=== PATIENT | female | born 1950 | race Caucasian/White ===

== ENCOUNTER 2024-01-06 08:45 | Emergency (ER) | payer OTHER, SELFPAY ==
[2024-01-06] VITALS (7 sets, daily range): BP systolic 141–167; BP diastolic 71–96; BMI 29.6
--- NOTE | 2024-01-06 09:22 | ED.GENMED ---
History of Present Illness
General
Chief Complaint: Abdominal Symptoms
Source: patient
Exam Limitations: none
Time Seen by Provider: 01/06/24 09:12
Travel History
Have you had any contact with someone who has COVID-19?: No
Do you have any symptoms of coronavirus? Fever > 100 degrees, chills, cough, shortness of breath, sore throat, loss of taste or smell, muscle aches, or headache?: No
History of Present Illness
History of Present Illness:
See MDM
Past History
Past History
ED Past Medical History: Hypothyroidism and Other (SVT, MVP)
ED Past Surgical History: Tonsilectomy
Social History
Tobacco: Former smoker
Alcohol: None
Personal:
Living: with family
Phy Exam
Physical Exam
Physical Exam:
See MDM
Course
Orders/Labs/Results
Orders:
Orders
01/06/24 09:20
0.9% Sodium Chloride 1000 ml [Nss] 1,000 ml IV BOLUS
Ketorolac [Toradol] 30 mg IV NOW STA
Ondansetron Injectable [Zofran] 4 mg IV NOW STA
01/06/24 09:21
CT Abd/pel Without Iv Or Oral Urgent
Comment:
Reason For Exam: Left flank pain
01/06/24 09:40
COVID-19 Antigen Urgent
Source: Nasal Swab
Complete Blood Count/With Diff Urgent
Comprehensive Metabolic Panel Urgent
01/06/24 11:21
Urinalysis Reflex To Culture Urgent
Date Specimen was Collected: 01/06/24
Time Specimen was Collected: 11:08
01/06/24 11:24
Ondansetron Injectable [Zofran] 4 mg IV NOW STA
01/06/24 14:31
Electrocardiogram (*1) Urgent
Reason for Study: Fatigue / Weakness
EKG- Treatment ONCE
Abnormal Lab Results
01/06/24
09:40
WBC 12.7 H 10^3/uL
(4.8-10.8)
MPV 10.9 H fL
(7.4-10.4)
Absolute Neuts (auto) 11.1 H 10^3/uL
(1.4-6.5)
Neutrophils % 87.8 H %
(42.2-75.2)
Lymphocytes % 10.1 L %
(20.5-51.1)
Creatinine 0.5 L mg/dL
(0.6-1.0)
Glucose 145 H mg/dl
(70-99)
01/06/24 09:40
01/06/24 09:40
Vital Signs
Initial and Last Documented VS:
Initial Vital Signs
Temp Pulse Resp BP Pulse Ox
98.7 F 88 16 167/96 95
01/06/24 08:56 01/06/24 08:56 01/06/24 08:56 01/06/24 08:56 01/06/24 08:56
Last Documented Vital Signs
Temp Pulse Resp BP Pulse Ox
98.7 F 89 16 141/79 96
01/06/24 08:56 01/06/24 13:15 01/06/24 13:15 01/06/24 13:00 01/06/24 13:20
MDM/Problems Addressed
Differential Diagnosis Includes:
HPI and MDM Narrative:
73-year-old female presenting with several days of left flank pain. Patient now developing nausea and vomiting. She is unsure if this could be a kidney stone or COVID. There is COVID going around her work. She denies abdominal pain or urinary
symptoms
On exam, patient is sitting in bed comfortably. There is very mild left CVA tenderness. There is no rash. Given her symptoms, will obtain CT to rule out kidney stone. We did discuss the possibility of viral syndrome and will treat symptoms with
Toradol and Zofran. Given the mild dehydration, will give IV fluids.
Physical exam
General: Well appearing and non-toxic
HEENT: protecting airway. Mildly dry mucous membranes
Neck: appears supple
CV: No evidence of cyanosis
Resp: No accessory muscle use
Abd: Non-distended and nontender
Back: Mild left CVA tenderness. No rash
Extremities: No deformities
Neuro: alert
Psych: Normal affect
Skin: Intact
Problems Addressed including Acute and Chronic Conditions affecting care:
1. Left flank pain
Acuity: acute
Prognosis: stable
Details: Will obtain CT to rule out kidney stone. Will give IV Toradol
2. Nausea
Acuity: acute
Prognosis: stable
Details: Will give IV Zofran
3. Dehydration
Acuity: acute
Prognosis: stable
Details: Will start IV fluids
Updates
CT negative for acute pathology. Urinalysis negative
Differential Diagnosis (but not limited to): Viral syndrome, kidney stone, pyelonephritis
Testing considered: CXR
Drug therapy (if applicable): OTC meds, please see d/c instruction regarding Rx drugs
Amount and/or Complexity of Data Reviewed
Clinical info obtained from: Patient
External data reviewed: N/A
Labs I independently reviewed (but not limited to): Mild leukocytosis
Radiology: The CT scan was personally and independently reviewed. In addition, official CT report reviewed.
Pulse Ox: not hypoxic
EKG independently reviewed: Sinus rhythm, normal axis, no STEMI
Control Clerk Auditing: N/A
Critical Care: N/A
Risk of Complication:
Social Determinants of health: Good social support
Discussed with other providers: N/A
Escalation of Care includes Admit/Obs: After being observed in the Emergency Department, pt stable for discharge.
Occasional wrong word or 'sound a like' substitutions may have occurred due to the inherent limitations of voice recognition software. Read the chart carefully and recognize, using context, where substitutions have occurred.
*Critical Care Note
Total Time (30-74mins, 75-104mins- exclusive of procedures): Not Applicable
ED Attending Note
-
Portions of this chart may have been created with voice recognition software.� Occasional wrong word or��sound alike� substitutions may have occurred due to the inherent limitations of voice recognition software.
Discharge Plan
Departure
Patient Disposition: Home (Routine Discharge)
Date of Disposition: 01/06/24
Time of Disposition: 14:30
Patient with high blood pressure during this ER visit?: Yes
Discharge Problem:
Nausea & vomiting
Instructions: BLOOD PRESSURE
Prescriptions:
New
ondansetron 4 mg Tablet,Disintegrating
4 mg PO BIDPRN PRN (Reason: nausea/vomiting) Qty: 10 0RF
No Action
famotidine 20 MG tablet
20 mg PO BID Qty: 28 0RF
Rx Instructions:
Take 20 mg twice a day for 14 days
ascorbic acid (vitamin C) [Vitamin C] 500 MG tablet
1,000 mg PO BID Qty: 56 0RF
Rx Instructions:
Take 1,000 mg twice a day for 14 days
aspirin 81 MG tablet,chewable
81 mg PO DAILY Qty: 14 0RF
Rx Instructions:
Take 81 mg daily for 14 days
zinc sulfate 220 MG capsule
220 mg PO DAILY Qty: 14 0RF
Rx Instructions:
Take 220 mg daily for 14 days
cholecalciferol (vitamin D3) 1,000 UNITS tablet
2,000 units PO DAILY Qty: 28 0RF
Rx Instructions:
Take 2,000 units daily for 14 days
melatonin 5 MG tablet
5 mg PO HS Qty: 14 0RF
Rx Instructions:
Take 5 mg daily at bedtime for 14 days
Referrals:
Mary Benson NP [Family Provider] -
Activity Restrictions/Additional Instructions:
Please return for any worsening symptoms.
You may return at any time if you have further concerns.
Please follow up with your doctor at the first available appointment, preferably this week.
Thank you for choosing [facility].
Interventions
Interventions:
*Risk Screen - Suicide Last Done: 01/06/24 08:54
*General Assessment Last Done: 01/06/24 08:54
*Neglect/Abuse Screening Last Done: 01/06/24 08:54
*ED COVID-19 Vaccine History Last Done: 01/06/24 13:22
IB-Hqpzca-Ivxeqktdil Assessment Last Done: 01/06/24 11:00
Discharge Date and Time
Print Language: CHINESE
[2024-01-06] MEDS: TORADOL 30 MG IV (09:51)
[2024-01-06] MEDS: ZOFRAN 4 MG IV ×2 (09:51→11:26)
[2024-01-06] MEDS: NSS 1000 IV (09:53)
[2024-01-06 09:56] LABS: % Basophils 0.2 % (0-2); % Immature Granulocytes 0.2 % (0-0.5); % Lymphocytes 10.1 % (20.5-51.1); % Monocytes 1.7 % (1.7-9.3); % Neutrophils 87.8 % (42.2-75.2); Absolute Lymphocytes 1.3 10^3/uL (1.2-3.4); Absolute Monocytes 0.2 10^3/uL (0.1-0.6); Absolute Neutrophils 11.1 10^3/uL (1.4-6.5); Hematocrit 38.9 % (37.0-47.0); Hemoglobin 13.1 g/dL (12.0-16.0); Mean Corp Hgb Conc. 33.7 g/dL (33.0-37.0); Mean Corpuscular Hgb 29.8 pg (27.0-31.0); Mean Corpuscular Volume 88.4 fL (81.0-99.0); Mean Platelet Volume 10.9 fL (7.4-10.4); Nucleated Red Blood Cells % 0 %; Platelet Count 242 10^3/uL (130-400); Red Cell Dist. Width 12.6 % (11.5-14.5); White Blood Cell Count 12.7 10^3/uL (4.8-10.8)
[2024-01-06 10:05] LABS: ALT (SGPT) 23 U/L (0-35); AST (SGOT) 26 U/L (14-36); Albumin 4.5 g/dl (3.5-5.0); Alkaline Phosphatase 86 U/L (38-126); Blood Urea Nitrogen 13 mg/dl (7-17); COVID-19 Antigen Negative (Negative); Calcium 9.7 mg/dl (8.4-10.2); Carbon Dioxide 27 mmol/L (22-30); Chloride 101 mmol/L (98-107); Estimated Creatinine Clearance 76 ml/min; Glucose 145 mg/dl (70-99); Potassium 3.7 mmol/L (3.5-5.1); Sodium 136 mmol/L (135-145); Total Bilirubin 0.5 mg/dl (0.2-1.3); Total Protein 7.6 g/dl (6.3-8.2); eGFR > 60.00
[2024-01-06 11:37] LABS: Urine Albumin Negative (Neg - Trace); Urine Bilirubin Negative (Negative); Urine Character Slightly Cloudy (Clear); Urine Color Yellow; Urine Glucose Negative (Negative); Urine Ketone Negative (Negative); Urine Leukocyte Negative (Negative); Urine Nitrite Negative (Negative); Urine Occult Blood Negative (Negative); Urine Specific Gravity 1.015 (<1.030); Urine Urobilinogen Negative (Neg - 1+)
== END 2024-01-06 15:50 | disposition home or self-care (01) ==
LOC: EMR 08:45
PROVIDERS: EMERGENCY PHYSICIAN Student in an Organized Health Care Education/Training Program; FAMILY PHYSICIAN Nurse Practitioner Family
DX: R11.2 Nausea with vomiting, unspecified (principal); R10.9 Unspecified abdominal pain; Z11.52 Encounter for screening for COVID-19; R03.0 Elevated blood-pressure reading, without diagnosis of hypertension; E03.9 Hypothyroidism, unspecified; I34.1 Nonrheumatic mitral (valve) prolapse; I47.10 Supraventricular tachycardia, unspecified; Z87.891 Personal history of nicotine dependence; Z79.82 Long term (current) use of aspirin
CPT/HCPCS: 99285; 96374; 96375; 96376; 96361; 74176; 80053; 81003; 85025; 87811; 93005

== ENCOUNTER 2024-10-17 15:34 | Inpatient (IN) | payer OTHER, MEDICARE, SELFPAY ==
[2024-10-17] VITALS (9 sets, daily range): BP systolic 124–146; BP diastolic 77–88; BMI 27.3; BMI 27.9
[2024-10-17 11:36] LABS: % Basophils 0.3 % (0-2); % Eosinophils 0.1 % (0-6); % Immature Granulocytes 0.4 % (0-0.5); % Lymphocytes 15.8 % (20.5-51.1); % Monocytes 6.3 % (1.7-9.3); % Neutrophils 77.1 % (42.2-75.2); Absolute Basophils 0.1 10^3/uL (0-0.2); Absolute Immature Granulocytes 0.1 10^3/uL (0-0.05); Absolute Lymphocytes 2.5 10^3/uL (1.2-3.4); Absolute Neutrophils 12.1 10^3/uL (1.4-6.5); Hematocrit 43.4 % (37.0-47.0); Hemoglobin 14.7 g/dL (12.0-16.0); Mean Corp Hgb Conc. 33.9 g/dL (33.0-37.0); Mean Corpuscular Hgb 29.9 pg (27.0-31.0); Mean Corpuscular Volume 88.4 fL (81.0-99.0); Mean Platelet Volume 11.3 fL (7.4-10.4); Nucleated Red Blood Cells % 0.1 %; Platelet Count 292 10^3/uL (130-400); Red Blood Cell Count 4.91 10^6/uL (4.20-5.40); Red Cell Dist. Width 13.2 % (11.5-14.5); White Blood Cell Count 15.8 10^3/uL (4.8-10.8)
[2024-10-17 12:01] LABS: Blood Urea Nitrogen 31 mg/dl (7-17); Calcium 9.4 mg/dl (8.4-10.2); Carbon Dioxide 24 mmol/L (22-30); Chloride 98 mmol/L (98-107); Estimated Creatinine Clearance 56 ml/min; Glucose 122 mg/dl (70-99); Sodium 134 mmol/L (135-145); eGFR > 60.00
--- NOTE | 2024-10-17 12:02 | ED.GENMED ---
History of Present Illness
General
Chief Complaint: Dizziness
Source: patient
Exam Limitations: none
Time Seen by Provider: 10/17/24 11:49
History of Present Illness
History of Present Illness:
74yoF with a history of SVT and hypothyroidism presenting via EMS for evaluation of palpitations. Patient has been feeling sick and under the weather for about a week. She initially had vomiting for several days but this has resolved. She
continues to feel fatigued and has not been eating or drinking much. She also has been noting some hematuria and some mild generalized abdominal discomfort. This morning around 10 AM, patient was sitting down when she had an abrupt onset of
palpitations which felt like her heart was racing. She immediately called 911. Patient was in SVT on EMS arrival with HR in the 160s. She received 6 mg of adenosine with conversion to normal sinus rhythm. Her palpitations have since resolved.
She denies any chest pain, shortness of breath, dizziness, fevers, diarrhea. Patient does have a history of paroxysmal SVT and follows with [facility].
Past History
Past History
ED Past Medical History: Hypothyroidism and Other (SVT, MVP)
ED Past Surgical History: Tonsilectomy
Social History
Tobacco: Former smoker
Alcohol: None
Personal:
Living: with family
Phy Exam
General Physical Exam
General Presentation: no apparent distress
General Skin: warm and dry
General Habitus: elderly
General Mental: alert
ENT Exam
ENT Exam: normocephalic
Eye Exam
Eye Exam: other (Scleral icterus present)
Cardiovascular Exam
Cardiovascular Exam: regular rate/rhythm
Pulmonary Exam
Pulmonary Exam: lungs clear, no respiratory distress, no rales, no crackles, no rhonchi and no wheezing
Gastrointestinal Exam
Gastrointestinal Exam: soft, non distended and other (+Mild generalized abdominal tenderness. No rebound or guarding.)
Neurological Exam
Neurological Exam: alert
Katelyn Coma Scale
Eye Opening: Spontaneous
Verbal Response: Oriented
Motor Response: Obeys Commands
GCS Total Score: 15
Skin Exam
Skin Exam: warm/dry and jaundice
Psychiatric Exam
Psychiatric Exam: normal mood/affect
Course
Orders/Labs/Results
Orders:
Orders
10/17/24 Breakfast
Clear Liquid
At Your Request: Full Participation
Does patient need a safe tray?: No
10/17/24 11:16
Electrocardiogram (*1) Urgent
Reason for Study: Vertigo / Dizzy
EKG- Treatment ONCE
10/17/24 11:22
Basic Metabolic Panel Urgent
Complete Blood Count/With Diff Urgent
10/17/24 12:00
Add On- LAB Urgent
Tests Added?: magnesium, lipase, LFTs, TSH
CT Abd/pelvis W Iv Cont Urgent
Comment:
Reason For Exam: generalized abd pain, hematuria
Urinalysis Reflex To Culture Urgent
0.9% Sodium Chloride 500 ml [Nss] 500 ml IV BOLUS
CR Chest - 2 Views Urgent
Comment:
Reason For Exam: palpitations
10/17/24 12:01
Cardiac Monitoring- Treatment ONCE
10/17/24 12:22
COVID-19 Antigen Urgent
Source: Nasal Swab
TSH Urgent
Troponin I Urgent
Influenza A+B Rapid Molecular Urgent
IBIS Source: Nasal Swab
Specimen Description:
10/17/24 13:28
Lipase Urgent
Cdxyz-Ouzd-Qfpfenl Urgent
Magnesium Urgent
Potassium Urgent
10/17/24 15:19
Admit/Transfer Patient As Directed
Co-Sign Provider:
Level of Care: Inpatient admission
Assign to:: Telemetry
Physician / Group: marilee
Diagnosis: choledocholitiathiasis
Reason for Telemetry: Arrhythmia
Date to Stop Telemetry: 10/20/24
Time to Stop Telemetry: 11:00
Reason for Hospitalization: choledocholithiasis
Expected length of stay greater than two midnights?: Yes
ELOS- Estimated Length of Stay in days: 3
I certify the patient meets the requirements for IP care: Yes
10/17/24 15:20
Code Status As Directed
Resuscitation Status: Full Code
PRN Pain Medication Management As Directed
May give lesser potent ordered pain med per pt: Yes
preference::
Protocol:: Medication orders for pain may be administered in a
manner that supports deferring to patient preference
when the pt is:
- Requesting an ordered lesser potent pain medication.
Least to most potent pain medications are defined
as: acetaminophen < NSAID < tramadol < opioids
(morphine, oxycodone, hydromorphone).
- Requesting a lesser dose of the same medication IF
ORDERED.
- Requesting a less intrusive route of administration
if both routes are prescribed by the provider (PO <
IV).
10/17/24 15:23
GASTROINTESTINAL CONSULT Routine
Consulting Provider: Andrae Martinez
Was physician already notified: Yes
10/17/24 18:08
Enoxaparin Sodium [Lovenox] 40 mg SC QPM
10/17/24 18:08
Activity As Directed
Activity Level: As Tolerated
Vital Signs As Directed
Frequency: Per unit guidelines
DX Deep Vein Thrombosis Video Routine
10/17/24 18:30
Troponin I Q6H
10/18/24 00:30
Troponin I Q6H
10/18/24 06:00
Complete Blood Count/No Diff IN AM
Comprehensive Metabolic Panel IN AM
Levothyroxine [Synthroid] 125 mcg PO DAILY @ 0600
10/18/24 08:00
Metoprolol Xl [Toprol Xl] 50 mg PO DAILY
10/19/24 06:00
Complete Blood Count/No Diff IN AM
Comprehensive Metabolic Panel IN AM
10/20/24 06:00
Complete Blood Count/No Diff IN AM
Comprehensive Metabolic Panel IN AM
10/20/24 11:00
DC Protocol for Telemetry ONCE
10/21/24 06:00
Complete Blood Count/No Diff IN AM
Comprehensive Metabolic Panel IN AM
Abnormal Lab Results
10/17/24 10/17/24 10/17/24
11:22 12:22 13:28
WBC 15.8 H 10^3/uL
(4.8-10.8)
MPV 11.3 H fL
(7.4-10.4)
Abs Immat Gran (auto) 0.1 H 10^3/uL
(0-0.05)
Absolute Neuts (auto) 12.1 H 10^3/uL
(1.4-6.5)
Absolute Monos (auto) 1.0 H 10^3/uL
(0.1-0.6)
Neutrophils % 77.1 H %
(42.2-75.2)
Lymphocytes % 15.8 L %
(20.5-51.1)
Sodium 134 L mmol/L
(135-145)
BUN 31 H mg/dl
(7-17)
Glucose 122 H mg/dl
(70-99)
Total Bilirubin 6.4 H mg/dl
(0.2-1.3)
Direct Bilirubin 5.0 H mg/dl
(0.0-0.4)
AST 339 H U/L
(14-36)
ALT 924 H* U/L
(0-35)
Alkaline Phosphatase 382 H U/L
(38-126)
Troponin I 0.074 H* ng/ml
TSH 6.83 H uIU/ml
(0.47-4.68)
10/17/24 11:22
10/17/24 13:28
Vital Signs
Initial and Last Documented VS:
Initial Vital Signs
BP
124/88
10/17/24 11:15
Last Documented Vital Signs
Temp Pulse Resp BP Pulse Ox
98.5 F 80 18 142/79 92
10/17/24 11:16 10/17/24 17:45 10/17/24 17:45 10/17/24 17:37 10/17/24 17:45
MDM/Problems Addressed
Differential Diagnosis Includes:
74yoF here after an episode of palpitations. Received adenosine prehospital for SVT and arrives in NSR. Also c/o malaise, vomiting, hematuria, and abd discomfort x 1 week. She is visibly jaundiced on exam. VSS. She is non-toxic appearing. No signs
of peritonitis on abdominal exam. Differential diagnosis includes but is not limited to: arrhythmia, ACS, dehydration, electrolyte abnormality, malignancy, choledocholithiasis, cholecystitis, pancreatitis
Initial ED plan: Check cardiac labs, magnesium, TSH, lipase, COVID/flu swab, EKG, CXR, and CT abdomen. IV fluid bolus.
*EKG
Interpreted by ED Provider?: Yes
EKG Intrepretation Date: 10/17/24
Heart Rate: 90
Rate: normal
Rhythm: sinus
[place]: normal axis
Interval: normal interval
Ischemia: non-specific ST changes (ST depressions/T wave inversions seen in anterolateral leads which appear worse since prior EKG in December 2023)
*Critical Care Note
Total Time (30-74mins, 75-104mins- exclusive of procedures): Not Applicable
Update Note
Update Note:
Labs reveal a transaminitis with AST 339, ALT 924, total bilirubin 6.4. Lipase WNL. EKG shows NST with ST depressions in anterolateral leads. Troponin elevated at 0.074. CT abdomen shows 'Relative prominent size gallbladder without definitive stones
within. Intrahepatic and extrahepatic biliary tract dilatation.' No obvious CBD stone or mass. GI notified and patient admitted to the hospitalist service for further management.
ED Attending Note
-
Portions of this chart may have been created with voice recognition software.� Occasional wrong word or��sound alike� substitutions may have occurred due to the inherent limitations of voice recognition software.
Discharge Plan
Departure
Patient Disposition: Admit
Date of Disposition: 10/17/24
Time of Disposition: 14:56
Presentation/result/management discussed w/ accepting MD/DO: Hospitalist
Discharge Problem:
Obstructive jaundice, Elevated troponin, SVT (supraventricular tachycardia)
Interventions
Interventions:
*Risk Screen - Suicide Last Done: 10/17/24 11:19
*General Assessment Last Done: 10/17/24 11:19
*Neglect/Abuse Screening Last Done: 10/17/24 11:19
*ED- Fall Risk Assessment Last Done: 10/17/24 11:19
*ED COVID-19 Vaccine History Last Done: 10/17/24 11:19
*Nursing Disposition Last Done: 10/17/24 17:57
ED- Neurological Assessment Last Done: 10/17/24 11:19
ED- Cardiac Assessment Last Done: 10/17/24 11:20
ED Swallowing Screen Last Done: 10/17/24 11:20
Discharge Date and Time
Discharge Date/Time: 10/17/24 18:06
[2024-10-17] MEDS: NSS 500 IV (12:22)
[2024-10-17 12:49] LABS: COVID-19 Antigen Negative (Negative)
[2024-10-17 13:07] LABS: Troponin I 0.074 ng/ml
[2024-10-17 13:29] LABS: TSH 6.83 uIU/ml (0.47-4.68)
[2024-10-17 14:04] LABS: AST (SGOT) 339 U/L (14-36); Albumin 3.5 g/dl (3.5-5.0); Alkaline Phosphatase 382 U/L (38-126); Lipase 150 U/L (23-300); Magnesium 2.1 mg/dl (1.6-2.3); Potassium 3.6 mmol/L (3.5-5.1); Total Bilirubin 6.4 mg/dl (0.2-1.3); Total Protein 6.4 g/dl (6.3-8.2)
[2024-10-17 14:22] LABS: ALT (SGPT) 924 U/L (0-35)
--- NOTE | 2024-10-17 14:58 | HPS.HSE ---
Family Physician
-
Family Physician: Mary Benson
Chief Complaint
-
abdominal fulness
nausea and vomitting
History of Present Illness
74yoF with a history of SVT and hypothyroidism presenting via EMS for evaluation of palpitations.patient was vomiting on Monday to Monday. since then she very weak and fatigue. patient stated poor oral intake. denied diarrhea. patient stated
abdominal fullness. patient stated dark urine. she was feeling intermittent palpitation. denied chest pain. denied OWENS, dizzy or syncope.denied fever, chills. denied dysuria. This morning around 10 AM, patient was sitting down when she had an abrupt
onset of palpitations which felt like her heart was racing. She immediately called 911. Patient was in SVT on EMS arrival wtih HR in the 160s. She received 6 mg of adenosine as well as fluids with conversion to normal sinus rhythm. Her
palpitations have since resolved.
upon arrival noted to have elevated LFT. Relative prominent size gallbladder without definitive stones within. Intrahepatic and extrahepatic biliary tract dilatation. Cannot exclude small calculus within the distal common bile duct. Recommend
correlation with LFTs. Consider abdominal ultrasound or MRI/MRCP for more complete evaluation.No findings to suggest urinary tract calculus or obstructive uropathy bilaterally.Small hiatal hernia with air-fluid level.
admitting for likely choledocholithiasis, for further management.
Medical History
Past Medical History
Past Medical History: Reports Other
Additional Past Medical History:
Adama thyroiditis
Viral gastroenteritis
mitral valve prolapse
Mitral regurgitation
SVT
Past Surgical History: Reports Tonsilectomy
Social History
Tobacco: Former Smoker
Alcohol: None
Drug: None
Family History
Family History: Not pertinent
Allergies / Home Medications
Allergies reflects when Allergies were last updated in [employer].
Home Medications with original date entered in [employer]
Allergy/Medication List:
Allergies
Allergy/AdvReac Type Severity Reaction Status Date / Time
No Known Allergies Allergy Verified 01/06/24 08:53
Home Medications
cholecalciferol (vitamin D3) 25 mcg (1,000 unit) tablet 2,000 units PO DAILY #28 tabs 07/13/21
ascorbic acid (vitamin C) 500 mg tablet (Vitamin C) 1,000 mg PO DAILY 10/17/24
levothyroxine 125 mcg tablet (Synthroid) 125 mcg PO DAILY 10/17/24
metoprolol succinate 50 mg tablet,extended release 24 hr (Toprol XL) 50 mg PO DAILY 10/17/24
vitamin B complex 1 tab PO DAILY 10/17/24
Review of Systems
-
Constitutional: Reports No Symptoms
EENT: Reports No Symptoms
Respiratory: Reports No Symptoms
Cardiac: Reports No Symptoms
Abdomen/GI: Reports Nausea, Vomiting and Other (abdominal fullness)
: Reports No Symptoms
Musculoskeletal: Reports No Symptoms
Skin: Reports No Symptoms
Neurological: Reports Weakness
Endocrine: Reports No Symptoms
Hematologic/Lymphatic: Reports No Symptoms
Psych: Reports No Symptoms
Physical Exam
Vital Signs
Vital Signs
Temp Pulse Resp BP Pulse Ox
98.5 F 73 16 138/77 94
10/17/24 11:16 10/17/24 14:20 10/17/24 14:20 10/17/24 14:19 10/17/24 13:59
Physical Exam
General: Well Developed, Well Nourished and No Apparent Distress
HEENT: NormoCephalic, Moist mucous membranes and Atraumatic
Respiratory: Clear
Cardiac: S1/S2 and Regular Rhythm; No Murmur or Rub
GI: Soft, Non Tender, Non Distended and Normal Bowel Sounds; No Organomegaly
Rectal: Deferred by Provider
Musculoskeletal: No Clubbing, No Cyanosis and No Edema
Skin: Rash and Jaundice
Neuro: AO x 3 and Nonfocal/grossly intact
Psych: Calm
Laboratory Results
-
10/17/24 11:22
10/17/24 13:28
Laboratory Results
Total Bilirubin 6.4 mg/dl (0.2-1.3) H 10/17/24 13:28
AST 339 U/L (14-36) H 10/17/24 13:28
ALT 924 U/L (0-35) H* 10/17/24 13:28
Alkaline Phosphatase 382 U/L (38-126) H 10/17/24 13:28
Troponin I 0.074 ng/ml H* 10/17/24 12:22
Lipase 150 U/L (23-300) 10/17/24 13:28
Data Reviewed
-
CT Scan: Report Reviewed by me
Lab Data: Labs Reviewed by me
Impression/Plan
-
#vomiting/abdominal pain concern for Choledocholithiasis
-Tbili 6.4,AST 339,ALT 924,wbc 15.8
-CT abdomen pelvis with the impression of Relative prominent size gallbladder without definitive stones within. Intrahepatic and extrahepatic biliary tract dilatation. Cannot exclude small calculus within the distal common bile duct. Recommend
correlation with LFTs. Consider abdominal ultrasound or MRI/MRCP for more complete evaluation.No findings to suggest urinary tract calculus or obstructive uropathy bilaterally.Small hiatal hernia with air-fluid level.
-will obtain MRCP
-GI consulted
#elevated trop NSTEMI
-trop 0.074
-EKG with NSR with ST and T wave abnormality
-trend trop
-denied chest pain.
#hypothyroidism
-levothyroxine continued
#SVT
-metoprolol continued
#DVT prophylaxis
-Lovenox
#CODE status
-full code
--- NOTE | 2024-10-17 15:23 | W.PN.UPDATE ---
Addendum entered and electronically signed by Frdedie Dotson MD 10/17/24 15:36:
EKG shows nonspecific ST depressions. Trend troponins.
Original Note:
Update Note
Progress Note Update
This is an addendum to the H&P written by Leigh Farris on 10/17/2024.� Patient seen and examined independently with CAB SUPERVISOR.
74-year-old female past medical history of hypothyroidism, SVT, mitral valve prolapse, mild to moderate mitral regurgitation, presenting with vomiting, fatigue, abdominal distention, dark urine and jaundice going for 4 days.� Also with palpitations
with elevated heart rate today.
She was found to be in SVT by EMS with heart rate in the 160s.� She was given 6 mg adenosine and IV fluids with conversion to normal sinus rhythm.
EKG shows normal sinus rhythm with sinus arrhythmia.
Labs show leukocytosis.� Transaminitis with ALT up to 924.� Total bilirubin of 6.4.
Chest x-ray unremarkable.� CT abdomen pelvis shows intrahepatic and extrahepatic biliary ductal dilatation.� Cannot exclude small calculus within distal common bile duct.
Check MRCP.� GI consulted.� Clear liquid diet.
--- NOTE | 2024-10-17 16:13 | CON.GI ---
Consultation
-
Date/Time Consultation Requested: 10/17/24 2:56pm
Date/Time Consultation Performed: 10/17/24 4:14pm
Requesting Provider: Millie Santana
Performing Provider: Andrae Martinez
Reason for Consultation: Jaundice, abd pain
Medical History
Chief Complaint / HPI
Chief Complaint: Jaundice, abd pain
History of Present Illness:
Patient is a 74-year-old female who has had intermittent episodes of left upper quadrant pain with nausea and vomiting. She had an episode in August but subsequently tested positive for COVID which she attributed as a cause for her symptoms. She
had another episode about a week ago and then again Monday. Today she had nausea, vomiting, left abdominal pain as well as palpitations which led her to the ER. She had an elevated heart rate in the 160s. That was treated with adenosine by EMS.
She has also had dark urine and her family members noted jaundice. She is not sure, but may have lost some weight.
Past Medical History
Past Medical History: Arrhythmias (SVT) and Hypothyroidism ([place])
Past Surgical History: None
Social History
Tobacco: Non-Smoker
Alcohol: None
Family History
Family History: Reviewed & Not Pertinent
Allergies / Home Medications
Allergy/AdvReac Type Severity Reaction Status Date / Time
No Known Allergies Allergy Verified 01/06/24 08:53
�Medication �Instructions �Recorded
cholecalciferol (vitamin D3) 25 2,000 units PO DAILY #28 tabs 07/13/21
mcg (1,000 unit) tablet
ascorbic acid (vitamin C) 500 mg 1,000 mg PO DAILY 10/17/24
tablet (Vitamin C)
levothyroxine 125 mcg tablet 125 mcg PO DAILY 10/17/24
(Synthroid)
metoprolol succinate 50 mg 50 mg PO DAILY 10/17/24
tablet,extended release 24 hr
(Toprol XL)
vitamin B complex 1 tab PO DAILY 10/17/24
Review of Systems
-
All other systems: A 12 pt ROS was Negative except as stated above in HPI
Vital Signs
Temp Pulse Resp BP Pulse Ox
98.5 F 73 16 138/77 94
10/17/24 11:16 10/17/24 14:20 10/17/24 14:20 10/17/24 14:19 10/17/24 13:59
Physical Exam
Exam
General: No Apparent Distress
HEENT: Normocephalic and Atraumatic
Respiratory: Non Labored Respirations
GI: Soft, Non Distended and Tender (mild LUQ tender)
Skin: Warm and Dry
Results
WBC 15.8 10^3/uL (4.8-10.8) H 10/17/24 11:22
Hgb 14.7 g/dL (12.0-16.0) 10/17/24 11:22
Hct 43.4 % (37.0-47.0) 10/17/24 11:22
MCV 88.4 fL (81.0-99.0) 10/17/24 11:22
Plt Count 292 10^3/uL (130-400) 10/17/24 11:22
Absolute Neuts (auto) 12.1 10^3/uL (1.4-6.5) H 10/17/24 11:22
Sodium 134 mmol/L (135-145) L 10/17/24 11:22
Potassium 3.6 mmol/L (3.5-5.1) 10/17/24 13:28
Chloride 98 mmol/L (98-107) 10/17/24 11:22
Carbon Dioxide 24 mmol/L (22-30) 10/17/24 11:22
BUN 31 mg/dl (7-17) H 10/17/24 11:22
Creatinine 0.8 mg/dL (0.6-1.0) 10/17/24 11:22
Calcium 9.4 mg/dl (8.4-10.2) 10/17/24 11:22
Total Bilirubin 6.4 mg/dl (0.2-1.3) H 10/17/24 13:28
AST 339 U/L (14-36) H 10/17/24 13:28
ALT 924 U/L (0-35) H* 10/17/24 13:28
Alkaline Phosphatase 382 U/L (38-126) H 10/17/24 13:28
Lipase 150 U/L (23-300) 10/17/24 13:28
Diagnostic Image Results:
Prior GI Procedures:
EGD:
Colonoscopy:
Assessment / Plan
-
Summary: 74yo female presents with episodic LUQ pain, n/v, palpitations. Also has had dark urine and family noted jaundice. TB 6.4, AST 339, ALT 924, AP 382. CT shows prominent GB, IHDD/EHDD, cannot exclude small calculus distal CBD
Impression:
Abd pain/jaundice
Biliary duct dilation on CT and possible CBD stone
Recommendations:
Going for MRI/MRCP to evaluate for CBD stone
If positive, plan ERCP
Trend LFTs
OK for clears.
Trend troponin for ST depression on ECG
-
-
Thank you for consultation and allowing me to participate in the patient's care. Please call the inhalation therapy teacher GI physician during the after hours with any questions or concerns.
[2024-10-17] MEDS: LOVENOX SC (19:48)
[2024-10-17 23:18] LABS: Troponin I 0.094 ng/ml
--- NOTE | 2024-10-17 23:30 | PTCARENOTE ---
Pt's troponin level increased from 0.074 to 0.094, asymptomatic. OPTOMETRIC TECHNICIAN Edmond notified, no new orders.
[2024-10-18] VITALS (40 sets, daily range): BP systolic 71–140; BP diastolic 48–89; BMI 27.9
[2024-10-18] MEDS: SYNTHROID 125 MCG PO (05:41)
[2024-10-18 07:01] LABS: Hematocrit 41.1 % (37.0-47.0); Hemoglobin 14.3 g/dL (12.0-16.0); Mean Corp Hgb Conc. 34.8 g/dL (33.0-37.0); Mean Corpuscular Volume 86.2 fL (81.0-99.0); Mean Platelet Volume 11.3 fL (7.4-10.4); Platelet Count 250 10^3/uL (130-400); Red Blood Cell Count 4.77 10^6/uL (4.20-5.40); Red Cell Dist. Width 13.3 % (11.5-14.5); White Blood Cell Count 13.3 10^3/uL (4.8-10.8)
[2024-10-18 07:31] LABS: ALT (SGPT) 735 U/L (0-35); AST (SGOT) 210 U/L (14-36); Albumin 3.7 g/dl (3.5-5.0); Alkaline Phosphatase 342 U/L (38-126); Blood Urea Nitrogen 30 mg/dl (7-17); Calcium 9.1 mg/dl (8.4-10.2); Carbon Dioxide 21 mmol/L (22-30); Chloride 103 mmol/L (98-107); Estimated Creatinine Clearance 55 ml/min; Glucose 78 mg/dl (70-99); Potassium 3.4 mmol/L (3.5-5.1); Sodium 136 mmol/L (135-145); Total Bilirubin 2.9 mg/dl (0.2-1.3); Total Protein 6.4 g/dl (6.3-8.2); eGFR > 60.00
[2024-10-18 08:14] LABS: Urine Albumin 2+ (Neg - Trace); Urine Bilirubin 2+ (Negative); Urine Character Clear (Clear); Urine Color Amber; Urine Glucose Negative (Negative); Urine Ketone 3+ (Negative); Urine Leukocyte 3+ (Negative); Urine Nitrite Positive (Negative); Urine Occult Blood 1+ (Negative); Urine Specific Gravity 1.015 (<1.030); Urine Urobilinogen 2+ (Neg - 1+)
[2024-10-18 10:31] LABS: Urine Mucus Many
[2024-10-18 10:32] LABS: Urine Amorphous Seen; Urine Squamous Cell >30 /LPF (Few)
[2024-10-18 10:34] LABS: Urine White Cell 90-100 /HPF (0-5)
[2024-10-18 10:36] LABS: Urine Bacteria Many (Negative)
--- NOTE | 2024-10-18 11:25 | CM ---
Patient seen bedside, initial assessment completed. Admitted for abdominal fullness, nausea and vomiting. Patient is a 74yoF with a history of SVT and hypothyroidism presenting via EMS for evaluation of palpitations.
Patient reports that she lives w/ her two sons and grandson in a single story rancher style home- 1 step to enter the home. Patient is independent w/ADLs and ambulation, no DME identified or required. 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
Patient denies SNF/VN/PT hx. Patient denies being current w/ any OP or home services at this time.
Address, points of contact and insurance verified
PCP: Mary Benson
Pharmacy: [facility] (in [place])[facility]
Plan: Anticipate home; no needs
[2024-10-18 11:52] LABS: Glucose - Point of Care 144 mg/dl (70-99)
[2024-10-18 12:13] LABS: Hematocrit 47.6 % (37.0-47.0); Hemoglobin 15.8 g/dL (12.0-16.0); Mean Corp Hgb Conc. 33.2 g/dL (33.0-37.0); Mean Corpuscular Hgb 29.8 pg (27.0-31.0); Mean Corpuscular Volume 89.8 fL (81.0-99.0); Mean Platelet Volume 11.3 fL (7.4-10.4); Platelet Count 286 10^3/uL (130-400); Red Cell Dist. Width 13.5 % (11.5-14.5); White Blood Cell Count 17.3 10^3/uL (4.8-10.8)
[2024-10-18] MEDS: LOPRESSOR 5 MG IV (12:14)
--- NOTE | 2024-10-18 12:20 | W.PN.GI.CBS2 ---
Addendum entered and electronically signed by Janneth Daigle MD 10/18/24 13:52:
cardiology evaluating pt and deems her higher but acceptable risk for ercp
antibiotics will be started by Dr Olmstead
d/w both via TT
Original Note:
Today's Communication / Plan
-
ERCP if was NPO
follow lfts
Assessment / Plan
-
Summary: 74yo female presents with episodic LUQ pain, n/v, palpitations. Also has had dark urine and family noted jaundice. TB 6.4, AST 339, ALT 924, AP 382. CT shows prominent GB, IHDD/EHDD, cannot exclude small calculus distal CBD
Impression:
Abd pain/jaundice
Biliary duct dilation on CT and possible CBD stone
Recommendations:
MRI/MRCP positive, for ERCP today
Trend LFTs which are improving
NPO
Subjective
Subjective
Date of Service: October 18, 2024
Pt with improving abdominal pain but MRI shows CBD stone
Objective
Data Reviewed
Laboratory Data:
Laboratory Results
10/18/24 12:00
Laboratory Results
Magnesium 2.1 mg/dl (1.6-2.3) 10/17/24 13:28
Total Bilirubin 2.9 mg/dl (0.2-1.3) H D 10/18/24 06:44
AST 210 U/L (14-36) H 10/18/24 06:44
ALT 735 U/L (0-35) H* 10/18/24 06:44
Alkaline Phosphatase 342 U/L (38-126) H 10/18/24 06:44
Lipase 150 U/L (23-300) 10/17/24 13:28
Vital Signs and I&O:
Vital Signs
Temp Pulse Resp BP Pulse Ox
98.1 F 90 16 105/50 95
10/18/24 08:00 10/18/24 09:14 10/18/24 08:00 10/18/24 09:14 10/18/24 08:00
I&O
10/17/24 10/18/24 10/19/24
06:59 06:59 06:59
Intake Total 480 / 480
Balance 480 / 480
Physical Exam
Physical Exam
Cardiology: S1 and S2
GI: Soft and Tender (mild tenderness)
Neuro: Non Focal
[2024-10-18 12:27] LABS: ALT (SGPT) 745 U/L (0-35); AST (SGOT) 208 U/L (14-36); Albumin 4.2 g/dl (3.5-5.0); Alkaline Phosphatase 367 U/L (38-126); Blood Urea Nitrogen 35 mg/dl (7-17); Calcium 9.6 mg/dl (8.4-10.2); Carbon Dioxide 19 mmol/L (22-30); Chloride 101 mmol/L (98-107); Estimated Creatinine Clearance 49 ml/min; Glucose 141 mg/dl (70-99); Potassium 3.3 mmol/L (3.5-5.1); Sodium 135 mmol/L (135-145); Total Bilirubin 2.9 mg/dl (0.2-1.3); Total Protein 7.2 g/dl (6.3-8.2); eGFR > 60.00
--- NOTE | 2024-10-18 12:30 | RR ---
A Rapid Response was called on this patient, please see Rapid Response form.
11:45 Pt mention felt tired. Assisted pt back in bed, noted on heart monitor heart rate increase to 180's.EKG done. DR. Olmstead notified.
12:14 Cardiology notified ordered Lopressor 5 mg IV x 1. Noted heart rate decrease to 120's (heart rhythm Atrial fib), continue to monitor pt closely.
--- NOTE | 2024-10-18 12:31 | CON.CAR ---
Addendum entered and electronically signed by Cori Burleson DO 10/18/24 17:44:
I saw and examined the patient.
The Applications Developer's note was reviewed and I agree with the note.
Comment: Patient presented to ER for evaluation of palpitations. She has history of SVT followed by Dr. Smallwood on toprol 50mg daily. She reports over the last week she has been feeling ill with N/V and poor appetite. Also with some abd discomfort.
This morning started with palpitations and called 911. She was in SVT on EMS arrival and required adenosine 6mg. Denies CP, SOB, lightheadedness. Noted to have elevated LFTs and by imaging with evidence of choledocholithiasis. she is planned for
ERCP this afternoon. Cardiology consulted to see patient urgently as recurred with SVT with HRs in 160s and symptomatic. Rapid response called prior to cardiology notification.
General: Lying supine, comfortable complaining of some mild abdominal pain, room air
HEENT: mmm
Respiratory: Clear and Non Labored Respirations
Cardiac: S1/S2 and Irregular Rhythm no murmur
GI: Soft, mildly distended. Mild diffuse tenderness most right upper quadrant. Positive bowel sound
Musculoskeletal: No edema
Plan:
Tachycardia with history of SVT now in rapid atrial fibrillation
-IV Lopressor 5 mg provided at bedside with improved heart rates from 140s�160s to 110s
-Hemodynamically stable
-No clinical evidence of heart failure. No chest pain
-Will initiate IV Cardizem gtt at 5 While n.p.o.
-While in rapid atrial fibrillation EKG with septal/lateral ST depressions and abnormal cardiac troponin on admission�patient denies chest pain or known coronary artery disease.
-trops peaked at 0.94 with earlier episode of SVT. trop 0.075 from draw during RR
-Will check 2D echocardiogram
-planned for ERCP this afternoon. ok to proceed with planned procedure at elevated but not prohibitive CV risk
-add asa 81mg daily
-pending results of echo and ERCP, would consider for IV heparin post procedure
-[id number] score of 2-3 for age, female, suspected vascular disease
-for transfer to IVU post ERCP
-Eventual ischemic evaluation
-check CVE
-TSH 6.83. add on free T4
Original Note:
Consultation
Consultation Request
Date/Time Consultation Performed: 10/18/24
Requesting Provider: Dr. Olmstead
Performing Provider: Dora Collier PA-C for Dr. Burleson
Reason for Consultation: SVT
Medical History
-
Chief Complaint: palpitations
History of Present Illness:
Patient presented to ER for evaluation of palpitations. She has history of SVT followed by Dr. Smallwood on toprol 50mg daily. She reports over the last week she has been feeling ill with N/V and poor appetite. Also with some abd discomfort. This
morning started with palpitations and called 911. She was in SVT on EMS arrival and required adenosine 6mg. Denies CP, SOB, lightheadedness. Noted to have elevated LFTs and by imaging with evidence of choledocholithiasis. she is planned for ERCP
this afternoon. Cardiology consulted to see patient urgently as recurred with SVT with HRs in 160s and symptomatic. Rapid response called prior to cardiology notification.
PMH:
SVT
MVP
Hypothyroidism
Past Medical History
Past Medical History: Other (in HPI)
Social History
Tobacco: Former Smoker
Alcohol: None
Employment: Employed
Allergies / Home Medications
Allergy/AdvReac Type Severity Reaction Status Date / Time
No Known Allergies Allergy Verified 01/06/24 08:53
�Medication �Instructions �Recorded �Confirmed �Type
cholecalciferol (vitamin D3) 25 2,000 units PO DAILY #28 tabs 07/13/21 10/17/24 Rx
mcg (1,000 unit) tablet
ascorbic acid (vitamin C) 500 mg 1,000 mg PO DAILY 10/17/24 10/17/24 History
tablet (Vitamin C)
levothyroxine 125 mcg tablet 125 mcg PO DAILY 10/17/24 10/17/24 History
(Synthroid)
metoprolol succinate 50 mg 50 mg PO DAILY 10/17/24 10/17/24 History
tablet,extended release 24 hr
(Toprol XL)
vitamin B complex 1 tab PO DAILY 10/17/24 10/17/24 History
Review of Systems
-
History Source: Patient
All other systems: Negative unless noted
Physical Exam
Vital Signs
Temp Pulse Resp BP Pulse Ox
98.1 F 90 16 105/50 95
10/18/24 08:00 10/18/24 09:14 10/18/24 08:00 10/18/24 09:14 10/18/24 08:00
Lab Results
10/18/24 12:00
10/18/24 12:00
Troponin I 0.070 ng/ml H* 10/18/24 06:44
Physical Exam
General: No Apparent Distress and Comfortable
HEENT: Normocephalic, Anicteric and Moist Mucous Membranes
Respiratory: Clear and Non Labored Respirations
Cardiac: S1/S2 and Irregular Rhythm
GI: Soft, Non Tender, Non Distended and Normal Bowel Sounds
Musculoskeletal: No Clubbing, No Cyanosis and No Edema
Skin: Warm and Dry
Neuro: AO x 3
Impression / Plan
-
Primary Foreign Agent: Dr. Smallwood
Assessment:
Palpitations
SVT
Atrial fibrillation with RVR, new diagnosis
Elevated troponin
N/V, abd discomfort, poor appetite
Choledocholithiasis
Leukocytosis
Elevated LFTs
Hypokalemia
Abnormal UA
MVP
Hypothyroidism
ECHO 08/23/2021: EF 60 to 65%, mild to moderate MR, trace TR, RVSP 21 mmHg
Echo 10/18/24: pending
Plan:
-Asked to see patient in urgent consult as went into SVT. Rapid response had been called prior to cardiology consult.
-Blood pressure stable
-Ordered IV Lopressor 5 mg x 1
-P.o. Toprol 50 mg daily was not given this morning due to relative hypotension
-Post IV Lopressor, patient noted to be in atrial fibrillation. This is new diagnosis for patient. Will initiate IV Cardizem gtt at 5
-While in rapid atrial fibrillation, EKG with septal/lateral ST depressions
-trops peaked at 0.94 with earlier episode of SVT. trop 0.075 from draw during RR
-planned for ERCP this afternoon. ok to proceed with planned procedure at elevated but not prohibitive CV risk
-urgent echo ordered
-add asa 81mg daily
-pending results of echo and ERCP, would consider for IV heparin post procedure
-[id number] score of 2-3 for age, female, suspected vascular disease
-for transfer to IVU post ERCP
-suspect will need ischemic evaluation prior to DC vs in short order as OP once recovered pending clinical course and results of testing
-check CVE
-TSH 6.83. add on free T4
-replete K
-UA also noted to be abnormal. Urine culture pending. defer treatment to primary service
-d/w nursing, hospitalist, GI
-CCT 40 minutes
Data Reviewed
-
EKG: Tracing Personally Visualized and interpreted
CT Scan: Report Reviewed by me
MRI: Report Reviewed by me
Medical Tests (Nuc Med, Echo etc): Report Reviewed by me
Labs: Labs Reviewed by me
Old Records: Reviewed
[2024-10-18 12:36] LABS: INR 1.18; PT 15.3 Sec (11.4-14.6)
[2024-10-18 12:39] LABS: Troponin I 0.075 ng/ml
[2024-10-18] MEDS: CARDIZEM 125 IV (12:56)
--- NOTE | 2024-10-18 13:00 | PTCARENOTE ---
1300 Currently on heart monitor pt continue Atrial fib (Heart rate 110's to 120's). Cardiology aware. Noted order, started cardizem IV drip at 5mg per hour via IV pump, continue to monitor pt closely.
[2024-10-18] MEDS: KCL 40 MEQ PO (13:06)
[2024-10-18] MEDS: LOW STRENGTH ASPIRIN 81 MG PO (13:56)
[2024-10-18] MEDS: ZOSYN 50 IV ×2 (13:56→20:27)
--- NOTE | 2024-10-18 16:30 | W.PN.HOSP.TC ---
Today's Communication/Plan
-
Continue in IVU
General Surgical Consult
recheck labs in AM
Assessment / Plan
Assessment / Plan
#vomiting/abdominal pain concern for Choledocholithiasis
-Tbili 6.4-->2.9-->2.9,
AST 339-->210-->208,
ALT 924-->735-->745,
wbc 15.8-->13.3-->17.3
etiology of leukocytosis unclear. Possible biliary obstructive related, maybe UTI
will start empiric Zosyn until etio determined
-CT abdomen pelvis with the impression of Relative prominent size gallbladder without definitive stones within. Intrahepatic and extrahepatic biliary tract dilatation. Cannot exclude small calculus within the distal common bile duct. Recommend
correlation with LFTs. Consider abdominal ultrasound or MRI/MRCP for more complete evaluation.No findings to suggest urinary tract calculus or obstructive uropathy bilaterally. Small hiatal hernia with air-fluid level.
- MRCP:Biliary ductal distention. Choledocholithiasis. Gallbladder distention with small calculus in the gallbladder neck. Mild gallbladder wall thickening and trace pericholecystic fluid, suggesting low-grade cholecystitis.
-GI consulted
ERCP balloon extraction of choledocholithiasis by Dr. Jonah Richards
Pt transferred to IVU post procedure
#elevated trop NSTEMI
-trop 0.074-->0.094-->0.090-->0.070-->0.075
-EKG with NSR with ST and T wave abnormality
-denied chest pain.
#hypothyroidism
-levothyroxine continued
Hypokalemia
K 3.6-->3.4-->3.3
received 40 Meq KCl orally
#SVT
-metoprolol continued. Was contacted this morning due to hypotension and Metoprolol was placed on hold pending further input. Pt did receive adenosine 6mg in ER with conversion to NSR
Pt transferred to IVU. Cardio consult placed, input appreciated. Currently converted to NSR on Cardizem drip
#DVT prophylaxis
-Lovenox
Family concerned about possible mild dementia and thus would prefer contact with family to make decisions
reviewed with CRISTINA Mendez (niece and track service person)
#CODE status
-full code
time including multiple visits 55 minutes
Anticipated Discharge: > 48 hours
Subjective/Interval History
-
Date of Service: October 18, 2024
Pt seen by me, noted a.fib, rate control and shortly thereafter went into SVT (does have a hx of this)
Objective Data
-
Labs:
Laboratory Results
10/18/24 10/18/24
06:44 12:00
WBC 13.3 H 17.3 H
Hgb 14.3 15.8
Hct 41.1 47.6 H
Plt Count 250 286
PT 15.3 H
INR 1.18
APTT 32.0
Sodium 136 135
Potassium 3.4 L 3.3 L
Chloride 103 101
Carbon Dioxide 21 L 19 L
BUN 30 H 35 H
Creatinine 0.8 0.9
Glucose 78 141 H
Calcium 9.1 9.6
Total Bilirubin 2.9 H D 2.9 H
AST 210 H 208 H
ALT 735 H* 745 H*
Alkaline Phosphatase 342 H 367 H
Vital Signs:
Vital Signs
Temp Pulse Resp BP Pulse Ox
97 F 73 17 102/71 95
10/18/24 15:50 10/18/24 16:15 10/18/24 16:15 10/18/24 16:15 10/18/24 16:15
I&O
03/02/0510/18/24 10/19/24
06:59 06:59 06:59
Intake Total 480 / 480
Balance 480 / 480
Review of Systems
-
History Source: Patient, Physician and Coordinated Provider
Constitutional: Denies Fever
EENT: Reports No Symptoms Reported
Respiratory: Reports No Symptoms
Cardiac: Reports No Symptoms; Denies Chest Pain
Abdomen/GI: Reports No Symptoms
Musculoskeletal: Reports No Symptoms
Neuro: Reports No Symptoms
Physical Exam
-
General: Well Developed, Well Nourished and No Apparent Distress
HEENT: Normocephalic, Atraumatic and Moist Mucous Membranes
Respiratory: Clear to Auscultation; Negative Wheezes, Rales or Rhonchi
Cardiac: S1/S2 and Irregular Rhythm
GI: Nondistended and Tender (mild LUQ tenderness)
Musculoskeletal: No Clubbing, No Cyanosis and No Edema
Neuro: Awake, Alert and Oriented
[2024-10-18] MEDS: LOVENOX 40 MG SC (18:01)
[2024-10-18 18:30] LABS: Troponin I 0.069 ng/ml
--- NOTE | 2024-10-18 18:41 | PTCARENOTE ---
Received patient from PACU at 1630 after ERCP under GA. Patient oriented to room and plan of care, belongings sent from the 4th floor to her room. Patient is in SR on the monitor, IV cardizem infusing at 5mg/hr. Patient denies any pain or
discomfort, tolerating clears, call campbell in reach. Patient's niece updated via telephone by Dr. Olmstead. Echo done at the bedside.
--- NOTE | 2024-10-18 20:40 | PTCARENOTE ---
assumed care of patient at the change of shift. AAOx3. denies any pain at this time. states just 'just feeling tired.' comfort measures provided. SR on tele 70s. bp 100/63. Cardizem gtt maintained at 5 ml/hr, per order. tolerating clear liquid diet.
passing gas. jaundice skin noted. reviewed plan of care with patient and verbalized understanding. call campbell within reach.
[2024-10-18 21:56] LABS: Free T4 1.89 ng/dl (0.78-2.19)
--- NOTE | 2024-10-18 22:13 | PTCARENOTE ---
at approx 2100, patients blood pressure 84/56. HR SR 60s-70s. recheck bp - 71/48. cardizem gtt placed on hold. patient denies any lightheadedness/dizziness. patient states 'feeling tired.' sp02 88% on RA- placed on 2L NC- 94%. updated [facility]
house DRILLER MACHINE and at bedside. discussed plan of care. cardizem gtt continue to be held. currently HR SR 70s. bp 95/82. 93% on 2L.
patient unable to void. bladder scan 660. patient denies any discomfort. order placed for straight cath. straight cathed patient for 700 ml of tea colored urine; no blood. fluids encouraged.
[2024-10-18] MEDS: NSS 500 IV (23:25)
[2024-10-18 23:37] LABS: Hematocrit 39.1 % (37.0-47.0); Hemoglobin 13.7 g/dL (12.0-16.0); Mean Corpuscular Hgb 30.2 pg (27.0-31.0); Mean Corpuscular Volume 86.1 fL (81.0-99.0); Mean Platelet Volume 10.8 fL (7.4-10.4); Platelet Count 236 10^3/uL (130-400); Red Blood Cell Count 4.54 10^6/uL (4.20-5.40); Red Cell Dist. Width 13.3 % (11.5-14.5); White Blood Cell Count 11.3 10^3/uL (4.8-10.8)
--- NOTE | 2024-10-18 23:37 | PTCARENOTE ---
blood pressure 76/58. HR SR 60s. patient sleeping and arouses to voice. denies any symptoms. [facility] [employer]. IVF bolus ordered, see mar. stat labs sent.
[2024-10-19] VITALS (28 sets, daily range): BP systolic 74–115; BP diastolic 51–69
[2024-10-19 00:04] LABS: Blood Urea Nitrogen 35 mg/dl (7-17); Calcium 8.9 mg/dl (8.4-10.2); Carbon Dioxide 21 mmol/L (22-30); Chloride 102 mmol/L (98-107); Estimated Creatinine Clearance 49 ml/min; Glucose 162 mg/dl (70-99); Sodium 132 mmol/L (135-145); eGFR > 60.00
[2024-10-19] MEDS: ProAmatine 5 MG PO (01:10)
[2024-10-19] MEDS: NSS 500 IV (01:53)
--- NOTE | 2024-10-19 02:22 | PTCARENOTE ---
patient continues to have low blood pressures. 83/59. 77/51. Molly Todd OPTICAL LAB TECHNICIAN notified and at bedside. midodrine ordered and given. another IVF bolus 500 ml ordered and started, see mar. patient sleepy but arousable to voice. answers questions
appropriately. forgetful. when asked, patient states having some lower abdominal pain- 'fullness.' + BS. bladder scan- 22cc. recheck bp- 108/63. HR SB/SR 50s-60s. asymptomatic. no new orders at this time.
[2024-10-19] MEDS: ZOSYN 50 IV ×4 (03:08→20:52)
--- NOTE | 2024-10-19 04:06 | W.PN.UPDATE ---
Update Note
Progress Note Update
RN reported Low BP 70's/60's to 87/58 HR 60's-70, RA 88% 97.6 IV Cardizem placed on hold. reports tiredness otherwise asymptomatic. Will order NSS 500 CC bolus x1, labs ordered wnl,
BP 83/51 MAP 62 18 Afebrile. Patient seen and evaluated, sleeping, easily arousable, pleasant, some memory impairment, knows her name, and where she is, unsure of the current year. Denies lightheadedness, dizziness, chest pain or shortness of
breath. Reports 'fullness' in the stomach, states passing gas, + BS 4 quad, soft non tender, no guarding. lungs clear, denies any chest pain, shortness of breath.
Will order Midodrine 5mg PO x 1, NSS 500CC x1 bolus.
when awake BP 104/60 HR 50s. When asleep-88/55 MAP 66
AM labs noted
Will continue NSS infusion.
[2024-10-19 04:48] LABS: Hematocrit 38.7 % (37.0-47.0); Mean Corp Hgb Conc. 33.6 g/dL (33.0-37.0); Mean Corpuscular Hgb 29.3 pg (27.0-31.0); Mean Corpuscular Volume 87.2 fL (81.0-99.0); Mean Platelet Volume 11.4 fL (7.4-10.4); Platelet Count 227 10^3/uL (130-400); Red Blood Cell Count 4.44 10^6/uL (4.20-5.40); Red Cell Dist. Width 13.3 % (11.5-14.5); White Blood Cell Count 10.5 10^3/uL (4.8-10.8)
[2024-10-19 05:07] LABS: Lactic Acid 0.9 mmol/L (0.7-2.0)
[2024-10-19 05:17] LABS: ALT (SGPT) 474 U/L (0-35); AST (SGOT) 99 U/L (14-36); Albumin 2.9 g/dl (3.5-5.0); Alkaline Phosphatase 250 U/L (38-126); Blood Urea Nitrogen 34 mg/dl (7-17); Calcium 8.7 mg/dl (8.4-10.2); Carbon Dioxide 22 mmol/L (22-30); Chloride 105 mmol/L (98-107); Estimated Creatinine Clearance 49 ml/min; Glucose 133 mg/dl (70-99); HDL Cholesterol 27 mg/dl; LDL Cholesterol, Calculated 125 mg/dl; Lipase 206 U/L (23-300); Potassium 3.9 mmol/L (3.5-5.1); Sodium 134 mmol/L (135-145); Total Bilirubin 2.1 mg/dl (0.2-1.3); Total Cholesterol 175 mg/dl (50-199); Total Protein 5.5 g/dl (6.3-8.2); Triglyceride 115 mg/dl (10-149); Very Low Density Lipoprotein 23 mg/dl (0-30); eGFR > 60.00
[2024-10-19] MEDS: SYNTHROID 125 MCG PO (07:42)
[2024-10-19] MEDS: NSS 1000 IV (07:43)
--- NOTE | 2024-10-19 08:01 | W.PN.HOSP.TC ---
Today's Communication/Plan
-
General Surg consult
Reviewed with CRISTINA Mims
start low dose Toprol XL
continue IVF, but add K
Assessment / Plan
Assessment / Plan
#vomiting/abdominal pain concern for Choledocholithiasis
-Tbili 6.4-->2.9-->2.9-->2.1,
AST 339-->210-->208-->99,
ALT 924-->735-->745-->474,
Lipase 150-->206
wbc 15.8-->13.3-->17.3-->11.3-->10.5
etiology of leukocytosis unclear. Possible biliary obstructive related, maybe UTI
will start empiric Zosyn until etio determined
Ur cx pending
-CT abdomen pelvis with the impression of Relative prominent size gallbladder without definitive stones within. Intrahepatic and extrahepatic biliary tract dilatation. Cannot exclude small calculus within the distal common bile duct. Recommend
correlation with LFTs. Consider abdominal ultrasound or MRI/MRCP for more complete evaluation.No findings to suggest urinary tract calculus or obstructive uropathy bilaterally. Small hiatal hernia with air-fluid level.
- MRCP:Biliary ductal distention. Choledocholithiasis. Gallbladder distention with small calculus in the gallbladder neck. Mild gallbladder wall thickening and trace pericholecystic fluid, suggesting low-grade cholecystitis.
-GI consulted
-Gen Surg consulted, discussed with Dr. Alonso last evening
ERCP balloon extraction of choledocholithiasis by Dr. Jonah Richards 10/18
On clear liquids, will advance as per direction of GI/Surg
Pt transferred to IVU post procedure
#elevated trop NSTEMI
-trop 0.074-->0.094-->0.090-->0.070-->0.075
-EKG with NSR with ST and T wave abnormality
-denied chest pain.
#hypothyroidism
-levothyroxine continued
Hypokalemia
K 3.6-->3.4-->3.3-->3.9
received 40 Meq KCl orally 10/18
#SVT
-metoprolol continued. Was contacted this morning due to hypotension and Metoprolol was placed on hold pending further input. Pt did receive adenosine 6mg in ER with conversion to NSR evening of admission.
Pt transferred to IVU. Cardio consult placed, input appreciated. converted to NSR on Cardizem drip. BP remains low 104/60. Cardizem drip placed on hold, currently not on Tx. Call placed and discussed with Dr. Burleson, requests starting
Toprol XL 25 mg daily now. Will continue IVF
#DVT prophylaxis
-Lovenox
Family concerned about possible mild dementia and thus would prefer contact with family to make decisions
reviewed with CRISTINA Mendez (niece and manager personal) 10/19
#CODE status
-full code
complex situation
Anticipated Discharge: > 48 hours
Subjective/Interval History
-
Date of Service: October 19, 2024
Feels better today, no abd pain
Objective Data
-
Labs:
Laboratory Results
10/18/24 10/19/24
23:28 04:12
WBC 11.3 H 10.5
Hgb 13.7 13.0
Hct 39.1 38.7
Plt Count 236 227
Sodium 132 L 134 L
Potassium 4.0 3.9
Chloride 102 105
Carbon Dioxide 21 L 22
BUN 35 H 34 H
Creatinine 0.9 0.9
Glucose 162 H 133 H
Calcium 8.9 8.7
Total Bilirubin 2.1 H
AST 99 H
ALT 474 H
Alkaline Phosphatase 250 H
Vital Signs:
Vital Signs
Temp Pulse Resp BP Pulse Ox
97.8 F 58 16 104/60 93
10/19/24 04:27 10/19/24 04:15 10/19/24 04:27 10/19/24 04:10 10/19/24 04:27
I&O
10/18/24 10/19/24 10/20/24
06:59 06:59 07:59
Intake Total 480 / 480 1325 / 1325
Output Total 700 / 700
Balance 480 / 480 625 / 625
Review of Systems
-
History Source: Patient, Physician and Coordinated Provider
Constitutional: Denies Fever
EENT: Reports No Symptoms Reported
Respiratory: Reports No Symptoms
Cardiac: Reports No Symptoms; Denies Chest Pain
Abdomen/GI: Reports No Symptoms; Denies Abdominal Pain, Nausea or Vomiting
Musculoskeletal: Reports No Symptoms
Neuro: Reports No Symptoms
Physical Exam
-
General: Well Developed, Well Nourished and No Apparent Distress
HEENT: Normocephalic, Atraumatic and Moist Mucous Membranes
Respiratory: Clear to Auscultation; Negative Wheezes, Rales or Rhonchi
Cardiac: S1/S2 and Irregular Rhythm
GI: Nondistended and Tender (mild LUQ tenderness resolved)
Musculoskeletal: No Clubbing, No Cyanosis and No Edema
Neuro: Awake, Alert and Oriented
[2024-10-19] MEDS: D5/0.45%NSS with KCL 20 MEQ 1000 IV ×2 (10:17→22:37)
[2024-10-19] MEDS: LOPRESSOR 12.5 MG PO ×2 (10:43→20:52)
--- NOTE | 2024-10-19 12:33 | W.PN.CARDCBS ---
Today's Communication / Plan
-
Continue to monitor hemodynamics with borderline low blood pressures receiving IV fluids
Low-dose Lopressor with hold parameters
Monitor telemetry
Eventual anticoagulation; will await general surgery plan
Eventual further workup for right atrial mass
Have reached out to patient's outpatient parish worker Dr. Smallwood
Impression / Plan
-
Primary Addresser: Dr. Smallwood
Assessment:
Palpitations
SVT
Atrial fibrillation with RVR, new diagnosis
Elevated troponin
N/V, abd discomfort, poor appetite
Choledocholithiasis
Leukocytosis
Elevated LFTs
Hypokalemia
Abnormal UA
MVP
Hypothyroidism
ECHO 08/23/2021: EF 60 to 65%, mild to moderate MR, trace TR, RVSP 21 mmHg
Echo 10/18/24: Normal biventricular size and systolic function with EF estimated 55-60%. Mild LVH. No regional wall motion abnormality. Right atrial size is normal there is a echodensity measuring 1.3 x 0.9 cm in the right atrium adjacent to the
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 Tricuspid leaflets open freely without obstruction. Trace tricuspid regurgitation. Mitral valve with trace mitral regurgitation. Aortic valve trileaflet, sclerotic without stenosis or regurgitation. Estimated
pulmonary artery pressures 50-20 mm IVC without mass size with normal respiratory variation
Plan:
Atrial tachycardias with history of SVT with episodes of SVT and rapid atrial fibrillation currently in this rhythm
-IV Cardizem discontinued this morning with hypotension
-Start Lopressor 12.5 mg twice daily with hold parameters and transition back to XL formulation once blood pressures have stabilized
-TSH elevated at 6.83 Free T4 normal
-CHADS-VASC score 2 (age and gender)
-For now continue aspirin 81 mg daily awaiting surgical plan. If no plan for surgery will start Eliquis 5 mg twice daily
Right atrial mass
-2D echocardiogram done yesterday personally reviewed. 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 Review of an echocardiogram from 2021 has a suggestion for similar less
prominent finding not reported.
-Will obtain a CTA of the chest
-Will contact patient's outpatient parish worker to review any prior records/diagnosis
-Imaging and case was discussed with CT surgery. Eventual referral to CT surgery likely as an outpatient to discuss resection. Patient will also eventually need a OCTAVIA and left heart catheterization
Abnormal EKG/elevated troponin in the setting of tachyarrhythmia
-No chest pain or pressure
-Echocardiogram with no regional wall motion abnormality and normal EF
-Eventual plan for left heart catheterization likely as an outpatient once she has recovered from choledocholithiasis
-Continue aspirin 81 mg daily.
-Lipid profile suboptimal however elevated LFTs in the setting lysis will hold off starting statin at this
-Continue low-dose beta-shadia
Choledocholithiasis with elevated LFTs
-GI and general surgery consulted
-Status post ERCP stone extraction
-Clinically improving now on clear liquids. LFTs improving.
-Await plan by general surgery
Hypokalemia now improved with oral supplementation. Keep K greater than 4, mag greater than 2
Discussed with hospitalist; will discuss with general surgery
Progress Note - Addresser
Subjective
Date of Service: October 19, 2024
Patient seen and examined feeling well this morning. She denies chest pain or pressure, shortness of breath or dizziness. She denies abdominal pain nausea or vomiting. She denies fevers.
Objective
Labs:
10/19/24 04:12
10/19/24 04:12
Labs
Hgb 13.0 g/dL (12.0-16.0) 10/19/24 04:12
Hct 38.7 % (37.0-47.0) 10/19/24 04:12
Plt Count 227 10^3/uL (130-400) 10/19/24 04:12
PT 15.3 Sec (11.4-14.6) H 03/07/25 12:00
INR 1.18 10/18/24 12:00
APTT 32.0 Sec (23.4-35.0) 10/18/24 12:00
Sodium 134 mmol/L (135-145) L 10/19/24 04:12
Potassium 3.9 mmol/L (3.5-5.1) 10/19/24 04:12
BUN 34 mg/dl (7-17) H 10/19/24 04:12
Creatinine 0.9 mg/dL (0.6-1.0) 10/19/24 04:12
Glucose 133 mg/dl (70-99) H 10/19/24 04:12
Troponins
10/17/24 10/17/24 10/17/24
12:22 15:45 18:30
Troponin I 0.074 H* Cancelled Cancelled
10/17/24 10/18/24 10/18/24
22:45 04:40 06:44
Troponin I 0.094 H* 0.090 H* 0.070 H*
10/18/24 10/18/24 10/18/24
12:00 12:30 17:59
Troponin I 0.075 H* Cancelled 0.069 H*
Vital Signs and I&O:
Vital Signs
Temp Pulse Resp BP Pulse Ox
97.8 F 62 16 102/62 96
10/19/24 11:00 10/19/24 08:30 10/19/24 11:00 10/19/24 08:00 10/19/24 11:00
Vital Signs
Temp Pulse Resp BP Pulse Ox
97.8 F 62 16 102/62 96
10/19/24 11:00 10/19/24 08:30 10/19/24 11:00 10/19/24 08:00 10/19/24 11:00
Intake & Output
10/17/24 10/18/24 10/19/24 10/20/24
06:59 06:59 06:59 07:59
Intake Total 480 / 480 1325 / 1325
Output Total 700 / 700
Balance 480 / 480 625 / 625
Physical Exam
Physical Exam
General: No acute distress, AAOX3
Neck: Negative JVD
Heart: Regular, Negative S3 positive S1/S2, No murmur
Lungs: CTA b/l, negative wheezes/rales/rhonchi
Abd: Positive BS, NT/ND, neg rebound/rigidity/guarding
Ext: Negative cyanosis/clubbing/edema
Neuro: nonfocal
--- NOTE | 2024-10-19 14:08 | CON.GS ---
Addendum entered and electronically signed by Leeroy Alonso MD 10/19/24 14:37:
Patient seen and examined with surgical [facility] OFFICER. Agree with documented consultation.
General surgery consultation requested after undergoing ERCP sphincterotomy stone extraction for choledocholithiasis with GI yesterday.
Patient states that she presented with problems managing her heart rate. She is a bit vague with her additional history taking but seems to state that she has had years of postprandial epigastric pain from eating too fast. This has been unchanged
for many years. She specifically denies right upper quadrant pain. She has been having some left-sided discomfort and occasional nausea vomiting over the past few months. Last bowel movement 3 days ago. Generally feels well after ERCP other than
some mild discomfort in the left abdomen.
PMH: A-fib/SVT, hypothyroidism
Past surgical history -tonsils, no past abdominal surgical history
AFVSS
NAD AAOx3 sitting comfortably in chair at bedside
ABD: Softly protuberant, mild tenderness palpation left upper quadrant/left side. No rebound rigidity or guarding. No right upper quadrant epigastric tenderness.
Imaging studies reviewed CT abdomen/pelvis 10/17/2024. Biliary ductal dilation. Gallbladder distended but no clear wall thickening or surrounding inflammatory changes.
MRCP/MR abdomen 10/17/2024: Reproducible low segment filling density for distal common bile duct suggestive of choledocholithiasis. The gallbladder wall thickening, moderately distended gallbladder
ERCP images reviewed there appears to be opacification of the cystic duct and gallbladder
Assessment/plan: 74-year-old female with recent choledocholithiasis postprocedure day #1 status post ERCP.
Discussed with patient indications for prophylactic cholecystectomy in setting of gallstone mediated complications -choledocholithiasis. Also reviewed with cardiology. No indication/need for urgent cholecystectomy as there are no radiographic or
clinical signs of cholecystitis. Cystic duct opacifies on ERCP.
Cholecystectomy on hold until further workup of right atrial mass.
Okay for therapeutic anticoagulation from a general surgical standpoint as anticipated plan is deferral until cardiology evaluations and workup complete.
Will follow peripherally.
Patient can follow-up as an outpatient with our general surgery office
Original Note:
Consultation
-
Date/Time Consultation Requested: 10/18/2024 1712
Date/Time Consultation Performed: 10/19/24 1300
Requesting Provider: Aysha
Performing Provider: Krysta Alonso
Medical History
-
Chief Complaint: palpitations
History of Present Illness:
Ms Mccloud is a 74 yo female with a h/o SVT who presented through the ED with palpations found to be in rapid Afib with left atrial mass seen on imaging. She additionally was noted to elevated LFT's prompting GI work up. She did note intermittent
LUQ discomfort with n/v over the past few months. Family and patient had noted jaundice as well. MRI/MRCP were positive for choledocholithiasis and she was taken for ERCP on 10/18/24 for removal of stones. She is currently having mild discomfort to
the LUQ with no pain or tenderness to the RUQ. She denies nausea or vomiting. She does note it has been 2-3 days since her last BM.
Past Medical History
Past Medical History: Arrhythmias (afib, svt) and Hypothyroidism
Past Surgical History: Tonsilectomy
Social History
Tobacco: Former Smoker
Alcohol: None
Family History
Family History: Reviewed & Not Pertinent
Allergies / Home Medications
Allergy/AdvReac Type Severity Reaction Status Date / Time
No Known Allergies Allergy Verified 01/06/24 08:53
�Medication �Instructions �Recorded �Confirmed �Type
cholecalciferol (vitamin D3) 25 2,000 units PO DAILY #28 tabs 07/13/21 10/17/24 Rx
mcg (1,000 unit) tablet
ascorbic acid (vitamin C) 500 mg 1,000 mg PO DAILY Supplement 10/17/24 10/17/24 History
tablet (Vitamin C)
levothyroxine 125 mcg tablet 125 mcg PO DAILY Thyroid 10/17/24 10/17/24 History
(Synthroid)
metoprolol succinate 50 mg 50 mg PO DAILY Blood Pressure 10/17/24 10/17/24 History
tablet,extended release 24 hr
(Toprol XL)
vitamin B complex 1 tab PO DAILY Supplement 10/17/24 10/17/24 History
Review of Systems
-
History Source: Patient
All other systems: Negative unless noted
A 10 point review of systems was completed, and was negative except as per HPI.
Physical Exam
Vital Signs
Temp Pulse Resp BP Pulse Ox
97.8 F 62 16 102/62 96
10/19/24 11:00 10/19/24 08:30 10/19/24 11:00 10/19/24 08:00 10/19/24 11:00
10/18/24 10/19/24 10/20/24
06:59 06:59 07:59
Actual Weight 66.848 kg
Body Mass Index (BMI) 27.9
Lab Results
10/19/24 04:12
10/19/24 04:12
WBC 10.5 10^3/uL (4.8-10.8) 10/19/24 04:12
Hgb 13.0 g/dL (12.0-16.0) 10/19/24 04:12
Hct 38.7 % (37.0-47.0) 10/19/24 04:12
Plt Count 227 10^3/uL (130-400) 10/19/24 04:12
Abs Immat Gran (auto) 0.1 10^3/uL (0-0.05) H 10/17/24 11:22
Neutrophils % 77.1 % (42.2-75.2) H 10/17/24 11:22
Physical Exam
General: Well Developed and Well Nourished
HEENT: Moist Mucous Membranes
Respiratory: Non Labored Respirations
GI: Soft, Non Distended and Tender (mild to LUQ)
Skin: Warm and Dry; Negative Jaundice
Neuro: Awake, Alert and AO x 3
Psych: Calm
Data Reviewed
-
CT Scan: Image Personally Visualized and interpreted, Report Reviewed by me, Discussed with Physician, Discussed with Nurse and Discussed with Patient
MRI: Image Personally Visualized and interpreted, Report Reviewed by me, Discussed with Physician, Discussed with Nurse and Discussed with Patient
Labs: Labs Reviewed by me, Discussed with Physician, Discussed with Nurse and Discussed with Patient
Old Records: Reviewed
Assessment / Plan
-
74 yo female presenting with palpitations and new onset afib found to be jaundiced with choledocholithiasis on MRCP. No cholecystitis on CT or MRI imaging, cholelithiasis demonstrated. Undergoing cardiac work up and management for new afib with
right atrial mass noted on the cardiac step down unit. LFT's trending down s/p ERCP on 10/18/24. No RUQ pain, some residual LUQ tenderness. Afebrile. Leukocytosis resolved.
Would recommend eventual laparoscopic cholecystectomy to prevent recurrence; however, as she does not currently have cholecystitis and given her concurrent cardiac diagnosis, this can be preformed on an outpatient basis once cleared by cardiology
for surgery. Discussed risk of recurrence with patient, who is agreeable with this plan.
--Ok for low fat diet
--Ok to begin anticoagulation as per cardiology
--Outpatient surgical follow up
--- NOTE | 2024-10-19 14:09 | W.PN.GI.CBS2 ---
Today's Communication / Plan
-
advance diet if ok with surgery
Assessment / Plan
-
Summary: 74yo female presents with episodic LUQ pain, n/v, palpitations. Also has had dark urine and family noted jaundice. TB 6.4, AST 339, ALT 924, AP 382. CT shows prominent GB, IHDD/EHDD, cannot exclude small calculus distal CBD
Impression:
abnl lfts improving s/p ERCP with stone extraction
Recommendations:
agree with surgical input
advance diet to low fat if ok with surgery
follow lfts
Subjective
Subjective
Date of Service: October 19, 2024
Pt w/o abdominal pain s/p ERCP with removal of stone
Objective
Data Reviewed
Laboratory Data:
Laboratory Results
10/19/24 04:12
10/19/24 04:12
Laboratory Results
PT 15.3 Sec (11.4-14.6) H 10/18/24 12:00
INR 1.18 10/18/24 12:00
APTT 32.0 Sec (23.4-35.0) 10/18/24 12:00
Magnesium 2.1 mg/dl (1.6-2.3) 10/17/24 13:28
Total Bilirubin 2.1 mg/dl (0.2-1.3) H 10/19/24 04:12
AST 99 U/L (14-36) H 10/19/24 04:12
ALT 474 U/L (0-35) H 10/19/24 04:12
Alkaline Phosphatase 250 U/L (38-126) H 10/19/24 04:12
Lipase 206 U/L (23-300) 10/19/24 04:12
Vital Signs and I&O:
Vital Signs
Temp Pulse Resp BP Pulse Ox
97.8 F 62 16 102/62 96
10/19/24 11:00 10/19/24 08:30 10/19/24 11:00 10/19/24 08:00 10/19/24 11:00
I&O
10/18/24 10/19/24 10/20/24
06:59 06:59 07:59
Intake Total 480 / 480 1325 / 1325
Output Total 700 / 700
Balance 480 / 480 625 / 625
Physical Exam
Physical Exam
GI: Soft, Non Distended and Non Tender
[2024-10-19] MEDS: MIRALAX 17 GRAMS PO (14:41)
[2024-10-19] MEDS: LOVENOX 40 MG SC (17:59)
--- NOTE | 2024-10-19 18:00 | PTCARENOTE ---
Pt received this am with no c/o of pain, palpitations or nausea. Pt tolerating clear liqs and advanced to low fat diet for dinner with no issues. Voiding clear yellow urine in the BR. Tolerated oob in the chair, gait steady.
[2024-10-20 04:24] VITALS: BP 101/67
[2024-10-20] MEDS: ZOSYN 50 IV ×4 (04:37→19:58)
[2024-10-20 05:09] LABS: Hematocrit 35.1 % (37.0-47.0); Mean Corp Hgb Conc. 34.2 g/dL (33.0-37.0); Mean Corpuscular Hgb 30.4 pg (27.0-31.0); Mean Corpuscular Volume 88.9 fL (81.0-99.0); Mean Platelet Volume 11.8 fL (7.4-10.4); Platelet Count 229 10^3/uL (130-400); Red Blood Cell Count 3.95 10^6/uL (4.20-5.40); Red Cell Dist. Width 13.2 % (11.5-14.5); White Blood Cell Count 14.7 10^3/uL (4.8-10.8)
[2024-10-20 05:35] LABS: ALT (SGPT) 359 U/L (0-35); AST (SGOT) 69 U/L (14-36); Alkaline Phosphatase 202 U/L (38-126); Blood Urea Nitrogen 21 mg/dl (7-17); Calcium 8.6 mg/dl (8.4-10.2); Carbon Dioxide 24 mmol/L (22-30); Chloride 106 mmol/L (98-107); Estimated Creatinine Clearance 49 ml/min; Glucose 133 mg/dl (70-99); Lipase 257 U/L (23-300); Magnesium 2.2 mg/dl (1.6-2.3); Potassium 3.7 mmol/L (3.5-5.1); Sodium 136 mmol/L (135-145); Total Bilirubin 1.7 mg/dl (0.2-1.3); Total Protein 5.5 g/dl (6.3-8.2); eGFR > 60.00
--- NOTE | 2024-10-20 06:05 | W.PN.GI.CBS2 ---
Today's Communication / Plan
-
will sign off
Assessment / Plan
-
Summary: 74yo female presents with episodic LUQ pain, n/v, palpitations. Also has had dark urine and family noted jaundice. TB 6.4, AST 339, ALT 924, AP 382. CT shows prominent GB, IHDD/EHDD, cannot exclude small calculus distal CBD
Impression:
abnl lfts improving s/p ERCP with stone extraction
Recommendations:
doing well post ercp day 2
will sign off call with questions
Subjective
Subjective
Date of Service: October 20, 2024
Pt eating, no abdominal pain
Objective
Data Reviewed
Laboratory Data:
Laboratory Results
10/20/24 04:35
10/20/24 04:35
Laboratory Results
PT 15.3 Sec (11.4-14.6) H 10/18/24 12:00
INR 1.18 10/18/24 12:00
APTT 32.0 Sec (23.4-35.0) 10/18/24 12:00
Magnesium 2.2 mg/dl (1.6-2.3) 10/20/24 04:35
Total Bilirubin 1.7 mg/dl (0.2-1.3) H 10/20/24 04:35
AST 69 U/L (14-36) H 10/20/24 04:35
ALT 359 U/L (0-35) H 10/20/24 04:35
Alkaline Phosphatase 202 U/L (38-126) H 10/20/24 04:35
Lipase 257 U/L (23-300) 10/20/24 04:35
Vital Signs and I&O:
Vital Signs
Temp Pulse Resp BP Pulse Ox
98.6 F 62 16 101/67 94
10/20/24 04:25 10/20/24 05:45 10/20/24 04:25 10/20/24 04:24 10/20/24 04:25
I&O
10/18/24 10/19/24 10/20/24
06:59 06:59 07:59
Intake Total 480 / 480 1325 / 1325 1000 / 1000
Output Total 700 / 700 550 / 550
Balance 480 / 480 625 / 625 450 / 450
Physical Exam
Physical Exam
GI: Soft, Non Distended and Non Tender
[2024-10-20 07:24] VITALS: BP 102/54
[2024-10-20] MEDS: SYNTHROID 125 MCG PO (07:28)
[2024-10-20] MEDS: LOPRESSOR 12.5 MG PO ×2 (08:37→19:59)
[2024-10-20] MEDS: MIRALAX 17 GRAMS PO (08:37)
--- NOTE | 2024-10-20 11:10 | W.PN.CARDCBS ---
Today's Communication / Plan
-
Start IV heparin
Supportive care as she is recovering from choledocholithiasis status post ERCP with stone extraction
Impression / Plan
-
Primary Liquor Blender: Dr. Smallwood
Assessment:
Palpitations
SVT
Atrial fibrillation with RVR, new diagnosis
Elevated troponin
N/V, abd discomfort, poor appetite
Choledocholithiasis
Leukocytosis
Elevated LFTs
Hypokalemia
Abnormal UA
MVP
Hypothyroidism
ECHO 08/23/2021: EF 60 to 65%, mild to moderate MR, trace TR, RVSP 21 mmHg
Echo 10/18/24: Normal biventricular size and systolic function with EF estimated 55-60%. Mild LVH. No regional wall motion abnormality. Right atrial size is normal there is a echodensity measuring 1.3 x 0.9 cm in the right atrium adjacent to the
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 Tricuspid leaflets open freely without obstruction. Trace tricuspid regurgitation. Mitral valve with trace mitral regurgitation. Aortic valve trileaflet, sclerotic without stenosis or regurgitation. Estimated
pulmonary artery pressures 50-20 mm IVC without mass size with normal respiratory variation
Plan:
Atrial tachycardias with history of SVT with episodes of SVT and rapid atrial fibrillation currently in sinus rhythm
- Lopressor 12.5 mg twice daily with hold parameters and transition back to XL formulation once blood pressures have stabilized
- TSH elevated at 6.83 Free T4 normal
- CHADS-VASC score 2 (age and gender)
- Per GI no plan for further procedures and okay to start anticoagulation. Per general surgery no immediate inpatient plan for cholecystectomy although she will need cholecystectomy in near future
- Will start IV heparin without bolus today to allow further discussion regarding right atrial mass management.
- Eventual transition to Eliquis. Case management consulted for cost
Right atrial mass
-2D echocardiogram done yesterday personally reviewed. 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 Review of an echocardiogram from 2021 has a suggestion for similar less
prominent finding not reported.
-CTA of the chest reviewed�will review with radiology for further comment on right atrial mass
-Spoke with Dr. Smallwood yesterday who will review his outpatient records with us next week
-Imaging and case was discussed with CT surgery. Eventual referral to CT surgery likely as an outpatient to discuss resection. Patient will also eventually need a OCTAVIA and left heart catheterization; need to discuss timing
Abnormal EKG/elevated troponin in the setting of tachyarrhythmia
-No chest pain or pressure
-Echocardiogram with no regional wall motion abnormality and normal EF
-Eventual plan for left heart catheterization likely as an outpatient once she has recovered from choledocholithiasis
-Continue aspirin 81 mg daily.
-Lipid profile suboptimal however elevated LFTs in the setting of choledocholithiasis/elevated LFTs will hold off starting statin at this
-Continue low-dose beta-shadia
Choledocholithiasis with elevated LFTs
-GI and general surgery consulted
-Status post ERCP stone extraction 10/18
-Clinically improving and tolerating diet
- LFTs improving.
-Will eventually need cholecystectomy in the near future
Discussed with hospitalist, GI and GS
Progress Note - Liquor Blender
Subjective
Date of Service: October 20, 2024
Seen and examined sitting out of bed to chair following breakfast. No abdominal pain. No nausea/vomiting. No fevers. No chest pain or pressure. Patient is aware of echo findings.
Objective
Labs:
10/20/24 04:35
10/20/24 04:35
Labs
Hgb 12.0 g/dL (12.0-16.0) 10/20/24 04:35
Hct 35.1 % (37.0-47.0) L 10/20/24 04:35
Plt Count 229 10^3/uL (130-400) 10/20/24 04:35
PT 15.3 Sec (11.4-14.6) H 10/18/24 12:00
INR 1.18 10/18/24 12:00
APTT 32.0 Sec (23.4-35.0) 10/18/24 12:00
Sodium 136 mmol/L (135-145) 10/20/24 04:35
Potassium 3.7 mmol/L (3.5-5.1) 10/20/24 04:35
BUN 21 mg/dl (7-17) H 10/20/24 04:35
Creatinine 0.9 mg/dL (0.6-1.0) 10/20/24 04:35
Glucose 133 mg/dl (70-99) H 10/20/24 04:35
Troponins
10/17/24 10/17/24 10/17/24
12:22 15:45 18:30
Troponin I 0.074 H* Cancelled Cancelled
10/17/24 10/18/24 10/18/24
22:45 04:40 06:44
Troponin I 0.094 H* 0.090 H* 0.070 H*
10/18/24 10/18/24 10/18/24
12:00 12:30 17:59
Troponin I 0.075 H* Cancelled 0.069 H*
Vital Signs and I&O:
Vital Signs
Temp Pulse Resp BP Pulse Ox
98.4 F 62 16 102/54 96
10/20/24 07:28 10/20/24 08:00 10/20/24 07:28 10/20/24 07:24 10/20/24 07:28
Vital Signs
Temp Pulse Resp BP Pulse Ox
98.4 F 62 16 102/54 96
10/20/24 07:28 10/20/24 08:00 10/20/24 07:28 10/20/24 07:24 10/20/24 07:28
Intake & Output
10/18/24 10/19/24 10/20/24 10/21/24
05:59 05:59 06:59 06:59
Intake Total
Output Total
Balance
Physical Exam
Physical Exam
General: No acute distress, AAOX3
Neck: Negative JVD
Heart: Regular, Negative S3 positive S1/S2, No murmur
Lungs: CTA b/l, negative wheezes/rales/rhonchi
Abd: Positive BS, NT/ND, neg rebound/rigidity/guarding
Ext: Negative cyanosis/clubbing/edema
Neuro: nonfocal
[2024-10-20 11:21] VITALS: BP 100/64
[2024-10-20 11:24] LABS: APTT 23.7 Sec (23.4-35.0)
[2024-10-20] MEDS: HEPARIN 25000 UNITS/250 ML IV (11:25)
[2024-10-20] MEDS: D5/0.45%NSS with KCL 20 MEQ IV (11:31)
--- NOTE | 2024-10-20 15:44 | W.PN.HOSP.TC ---
Addendum entered and electronically signed by Dakota Olmstead MD 10/20/24 17:11:
Vanessa morris RN called and updated 10/20
Original Note:
Today's Communication/Plan
-
started Heparin no bolus
Await further input from Cardio
Assessment / Plan
Assessment / Plan
#vomiting/abdominal pain concern for Choledocholithiasis
-Tbili 6.4-->2.9-->2.9-->2.1-->1.7
AST 339-->210-->208-->99-->69
ALT 924-->735-->745-->474-->359
Lipase 150-->206
wbc 15.8-->13.3-->17.3-->11.3-->10.5-->14.7
etiology of leukocytosis unclear. Possible biliary obstructive related, maybe UTI (Ur x demonstrated mixed michelle)
will start empiric Zosyn until etio determined
Ur cx pending
-CT abdomen pelvis with the impression of Relative prominent size gallbladder without definitive stones within. Intrahepatic and extrahepatic biliary tract dilatation. Cannot exclude small calculus within the distal common bile duct. Recommend
correlation with LFTs. Consider abdominal ultrasound or MRI/MRCP for more complete evaluation.No findings to suggest urinary tract calculus or obstructive uropathy bilaterally. Small hiatal hernia with air-fluid level.
- MRCP:Biliary ductal distention. Choledocholithiasis. Gallbladder distention with small calculus in the gallbladder neck. Mild gallbladder wall thickening and trace pericholecystic fluid, suggesting low-grade cholecystitis.
-GI consulted
-Gen Surg consulted, discussed with Dr. Alonso, will hold on surgical intervention pending resolution of cardiac issues
ERCP balloon extraction of choledocholithiasis by Dr. Jonah Richards 10/18
diet advanced to Low Fat
Pt transferred to IVU post procedure
BP remains low at 100/64
#elevated trop NSTEMI
-trop 0.074-->0.094-->0.090-->0.070-->0.075
-EKG with NSR with ST and T wave abnormality
-denied chest pain.
#hypothyroidism
-levothyroxine continued
Hypokalemia
K 3.6-->3.4-->3.3-->3.9-->3.7
received 40 Meq KCl orally 10/18
#SVT
-metoprolol continued. Was contacted due to hypotension and Metoprolol was placed on hold pending further input. Pt did receive adenosine 6mg in ER with conversion to NSR evening of admission.
Pt transferred to IVU. Cardio consult placed, input appreciated. converted to NSR on Cardizem drip. BP remains low 104/60. Cardizem drip stopped. Call placed and discussed with Dr. Burleson, started Lopressor 12.5bid. Will dc IVF
Heparin to continue
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
CT scan: There is heterogeneous attenuation within the right atrium, significantly limited in evaluation due to motion artifact and contrast mixing in this region. There is an ill-defined region of hypoattenuation and underlying mass is not
excluded, although discrete measurements cannot be made.
#DVT prophylaxis
-Heparin
Family concerned about possible mild dementia and thus would prefer contact with family to make decisions
reviewed with CRISTINA Mendez (niece and call or contact centre team leader) 10/19
#CODE status
-full code
complex situation
Anticipated Discharge: > 48 hours
Subjective/Interval History
-
Date of Service: October 20, 2024
Generally feels better, sitting in a chair
Objective Data
-
Labs:
Laboratory Results
10/20/24 10/20/24
04:35 11:05
WBC 14.7 H
Hgb 12.0
Hct 35.1 L
Plt Count 229
APTT 23.7
Sodium 136
Potassium 3.7
Chloride 106
Carbon Dioxide 24
BUN 21 H
Creatinine 0.9
Glucose 133 H
Calcium 8.6
Total Bilirubin 1.7 H
AST 69 H
ALT 359 H
Alkaline Phosphatase 202 H
Vital Signs:
Vital Signs
Temp Pulse Resp BP Pulse Ox
97.9 F 63 18 100/64 93
10/20/24 11:19 10/20/24 11:30 10/20/24 11:19 10/20/24 11:21 10/20/24 11:21
I&O
10/19/24 10/20/24 10/21/24
05:59 06:59 06:59
Intake Total
Output Total 350 / 350
Balance -350 / -350
Review of Systems
-
History Source: Patient, Physician and Coordinated Provider
Constitutional: Denies Fever
EENT: Reports No Symptoms Reported
Respiratory: Reports No Symptoms
Cardiac: Reports No Symptoms; Denies Chest Pain
Abdomen/GI: Reports No Symptoms; Denies Abdominal Pain, Nausea or Vomiting
Musculoskeletal: Reports No Symptoms
Neuro: Reports No Symptoms
Physical Exam
-
General: Well Developed, Well Nourished and No Apparent Distress
HEENT: Normocephalic, Atraumatic and Moist Mucous Membranes
Respiratory: Clear to Auscultation; Negative Wheezes, Rales or Rhonchi
Cardiac: Regular Rhythm and S1/S2
GI: Nondistended and Tender (mild LUQ tenderness resolved)
Musculoskeletal: No Clubbing, No Cyanosis and No Edema
Neuro: Awake, Alert and Oriented
[2024-10-20 16:49] VITALS: BP 108/69
[2024-10-20 18:35] LABS: APTT 46.2 Sec (23.4-35.0)
[2024-10-20 19:58] VITALS: BP 114/61
--- NOTE | 2024-10-20 20:50 | PTCARENOTE ---
Patient received at change of shift out of bed to the chair. Heparin gtt infusing at 1000units/hr. Patient denies pain, N/V, and/or palpitations. Endorses passing flatus. Sinus rhythm on telemetry. Oxygen saturation 97-99% on room air. Plan of care
discussed. Call campbell within reach. Care ongoing.
[2024-10-20 22:23] VITALS: BP 102/58
[2024-10-21] VITALS (8 sets, daily range): BP systolic 92–151; BP diastolic 61–76
[2024-10-21] MEDS: ZOSYN 50 IV ×2 (01:46→08:12)
[2024-10-21 02:17] LABS: Hematocrit 34.5 % (37.0-47.0); Hemoglobin 11.8 g/dL (12.0-16.0); Mean Corp Hgb Conc. 34.2 g/dL (33.0-37.0); Mean Corpuscular Hgb 29.9 pg (27.0-31.0); Mean Corpuscular Volume 87.6 fL (81.0-99.0); Mean Platelet Volume 11.5 fL (7.4-10.4); Platelet Count 218 10^3/uL (130-400); Red Blood Cell Count 3.94 10^6/uL (4.20-5.40); Red Cell Dist. Width 13.5 % (11.5-14.5); White Blood Cell Count 11.2 10^3/uL (4.8-10.8)
[2024-10-21 02:26] LABS: APTT 133.6 Sec (23.4-35.0)
[2024-10-21 02:38] LABS: ALT (SGPT) 276 U/L (0-35); AST (SGOT) 52 U/L (14-36); Albumin 2.9 g/dl (3.5-5.0); Alkaline Phosphatase 192 U/L (38-126); Blood Urea Nitrogen 17 mg/dl (7-17); Calcium 8.6 mg/dl (8.4-10.2); Carbon Dioxide 23 mmol/L (22-30); Chloride 106 mmol/L (98-107); Estimated Creatinine Clearance 55 ml/min; Glucose 80 mg/dl (70-99); Potassium 3.5 mmol/L (3.5-5.1); Sodium 137 mmol/L (135-145); Total Bilirubin 1.8 mg/dl (0.2-1.3); Total Protein 5.3 g/dl (6.3-8.2); eGFR > 60.00
[2024-10-21] MEDS: SYNTHROID 125 MCG PO (04:35)
[2024-10-21] MEDS: MIRALAX 17 GRAMS PO (08:13)
--- NOTE | 2024-10-21 08:49 | W.PN.CARDCBS ---
Addendum entered and electronically signed by Doug Anglin MD 10/21/24 11:15:
74-year-old woman with a history of SVT controlled with metoprolol who developed SVT requiring adenosine in the setting of acute choledocholithiasis. Thereafter she developed rapid A-fib with ST segment changes, peak troponin of 0.94. Subsequently
has undergone ERCP with sphincterotomy. 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 Doing
well since that time. Currently, she feels well. Patience Madsen is at bedside, who is a nurse who works in IT here at [place]
Medications: Levothyroxine 125 mcg a day, piperacillin, metoprolol tartrate 12.5 twice daily, IV heparin
125/68, pulse 74, respiratory rate 18, afebrile, clear lungs, head neck exam unremarkable, lungs clear, regular rate and rhythm, JVD okay, no murmurs, abdomen benign, extremities without clubbing cyanosis or edema, neuro nonfocal
Hemoglobin 11.8, white count 11.2, bilirubin 1.8, which is stable, AST 52, ALT 276, downtrending, BUN/creatinine 17 and 0.86 potassium 3.5
Impression:
History of SVT in the setting of hemodynamic stress
Newly detected paroxysmal atrial fibrillation
Choledocholithiasis
Elevated troponin with EKG changes and atrial fibrillation
Right atrial mass
Plan:
Despite what could be an right atrial myxoma, along with a history of SVT and newly diagnosed atrial fibrillation in the setting of choledocholithiasis, she appears stable from a cardiac standpoint.
Would initiate Eliquis 5 mg twice daily.
Restart Metoprolol ER [address] of metoprolol tartrate
Okay to proceed with discharge planning at this time.
We will arrange for outpatient cardiac follow-up. At follow-up, we can determine whether pharmacologic stress testing should be performed or if cardiac catheterization is indicated prior to cholecystectomy and presumed resection of intracardiac
mass. Will also determine best next imaging modality for her right atrial mass, MRI and/or transesophageal echo.
Original Note:
Today's Communication / Plan
-
Will arrange for outpatient CT surgery evaluation of RA echodensity
Pending outcome of CT surgery eval will proceed with cath vs stress test to evaluation Troponin elevation
Eventual cholecystectomy
Updated patient's niece in the room
52 min in face to face and coordination of care
Impression / Plan
-
PCP: Mary Benson
Primary Pickling Operator: Dr. Smallwood
Impression:
Palpitations
SVT
Paroxysmal atrial fibrillation with RVR, new diagnosis
Elevated troponin
N/V, abd discomfort, poor appetite
Choledocholithiasis
Leukocytosis
Elevated LFTs
Hypokalemia
Abnormal UA
MVP
Hypothyroidism
RA echodensity seen on echo 10/18/24
ECHO 08/23/2021: EF 60 to 65%, mild to moderate MR, trace TR, RVSP 21 mmHg
Echo 10/18/24: EF estimated 55-60%, no WMA, mild conc LVH, RA normal size, echodensity measuring 1.3 x 0.9 cm in the RA adjacent to the tricuspid valve, possible myxoma, trace MR, aortic sclerosis without stenosis
Plan:
-Patient with known h/o SVT and Atach, but now with new paroxysmal Afib with RVR that spontaneously converted to SR this admission. Tele reviewed by me 10/21/24 and remains in SR.
-Outpatient dose of Toprol XL 50 mg daily was changed to Lopressor 12.5 mg BID due to intermittent hypotension, but BP improving so will switch back to Toprol XL at 25 mg daily starting 10/21/24 PM.
-Heparin gtt started on admission. Will transition to Eliquis 5 mg BID (age 74, wt 66 kg, Cre 0.8) starting 10/21/24 PM. Task to CM team to check on cost and e-scribed to patient's pharmacy
-Patient with RA echodensity on echo 10/18/24 that was also present and slightly smaller on her last echo in 2021. CT surgery team would like to see patient in the office, TT to hospital team to introduce patient and coordinate and outpatient appt,
await appt time from their team.
-Patient with peak Troponin 0.09. ECG abnormal in the setting of rapid atrial arrhythmia on admission. Pending outcome of CT surgery outpatient appt will make ischemic evaluation plans. If CT surgery recommends resection of RA echodensity then will
plan on cardiac cath and if no surgery is recommended then will plan on a Lexiscan stress test.
-Will manage as a nonischemic myocardial injury Troponin elevation for now. No WMA on echo.
-Patient will also need to follow up with general surgery for eventual cholecystectomy.
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 Patient is also asking to switch to [facility], asked her
to think about it. Patient's niece works at and would also like patient to switch for continuity. Will coordinate outpatient f/u
HPI: Patient presented to ER for evaluation of palpitations. She has history of SVT followed by Dr. Smallwood on Toprol 50mg daily. She reports over the last week she has been feeling ill with N/V and poor appetite. Also with some abd discomfort. This
morning started with palpitations and called 911. She was in SVT on EMS arrival and required adenosine 6mg. Denies CP, SOB, lightheadedness. Noted to have elevated LFTs and by imaging with evidence of choledocholithiasis. she is planned for ERCP
this afternoon. Cardiology consulted to see patient urgently as recurred with SVT with HRs in 160s and symptomatic. Rapid response called prior to cardiology notification.
Progress Note - Pickling Operator
Subjective
Date of Service: October 21, 2024
Feels well, no palpitations
Objective
Labs:
10/21/24 01:55
10/21/24 01:55
Labs
Hgb 11.8 g/dL (12.0-16.0) L 10/21/24 01:55
Hct 34.5 % (37.0-47.0) L 10/21/24 01:55
Plt Count 218 10^3/uL (130-400) 10/21/24 01:55
PT 15.3 Sec (11.4-14.6) H 10/18/24 12:00
INR 1.18 10/18/24 12:00
APTT 133.6 Sec (23.4-35.0) H 10/21/24 01:55
Sodium 137 mmol/L (135-145) 10/21/24 01:55
Potassium 3.5 mmol/L (3.5-5.1) 10/21/24 01:55
BUN 17 mg/dl (7-17) 10/21/24 01:55
Creatinine 0.8 mg/dL (0.6-1.0) 10/21/24 01:55
Glucose 80 mg/dl (70-99) 10/21/24 01:55
Troponins
10/18/24 10/18/24 10/18/24
12:00 12:30 17:59
Troponin I 0.075 H* Cancelled 0.069 H*
Vital Signs and I&O:
Vital Signs
Temp Pulse Resp BP Pulse Ox
98.1 F 74 18 125/68 92
10/21/24 07:30 10/21/24 04:39 10/21/24 07:30 10/21/24 04:39 10/21/24 07:30
Vital Signs
Temp Pulse Resp BP Pulse Ox
98.1 F 74 18 125/68 92
10/21/24 07:30 10/21/24 04:39 10/21/24 07:30 10/21/24 04:39 10/21/24 07:30
Intake & Output
10/19/24 10/20/24 10/21/24 10/22/24
05:59 06:59 06:59 06:59
Intake Total 204 / 204
Output Total 1700 / 1700 250 / 250
Balance -1496 / -1496 -250 / -250
Physical Exam
Physical Exam
General: NAD, AAO to person, place and situation
HEENT: EOMI
Heart: SR on tele. Reg
Lungs: RA. No audible wheeze
Abd: ND
Ext: No edema B/L
Neuro: nonfocal
--- NOTE | 2024-10-21 09:09 | W.PN.HOSP.TC ---
Today's Communication/Plan
-
timing of cholecystectomy and other procedures as per cardiology/CT surgery
d/c planning
Eliquis pricing
Assessment / Plan
Assessment / Plan
pt is a 74 year old female
choledocholithiasis (confirmed by CT and MRI)--s/p ERCP with stone removal--LFTs improving--apprec GI/surg---for outpt elective cholecystectomy
NSTEMI--trop 0.074-->0.094-->0.090-->0.070-->0.075--EKG with NSR with ST and T wave abnormality--denied chest pain--apprec cards --ECHO with EF 55-60%
Rt atrial mass of unclear significance-- ?Myxoma--unclear how long been there--cards contacted CT surgery--await input
hypothyroidism--levothyroxine continued--TSH slightly elevated at 6.8 but free T4 normal--no changes currently
Hypokalemia--replete PRN
SVT/paroxysmal afib--apprec cards--IV heparin started--CM to trevino Eliquis--metoprolol with holding parameters--Pt did receive adenosine 6mg in ER with conversion to NSR evening of admission.
DVT prophylaxis--Heparin
Family concerned about possible mild dementia and thus would prefer contact with family to make decisions
reviewed with CRISTINA Mendez (niece and contact center assistant) 10/21
CODE status--full code
Anticipated Discharge: 24 - 48 hours
Subjective/Interval History
-
Date of Service: October 21, 2024
pt without any further pain
Objective Data
-
Labs:
Laboratory Results
10/21/24 10/21/24
01:55 09:45
WBC 11.2 H
Hgb 11.8 L
Hct 34.5 L
Plt Count 218
APTT 133.6 H Pending
Sodium 137
Potassium 3.5
Chloride 106
Carbon Dioxide 23
BUN 17
Creatinine 0.8
Glucose 80
Calcium 8.6
Total Bilirubin 1.8 H
AST 52 H
ALT 276 H
Alkaline Phosphatase 192 H
Vital Signs:
max temp for 24 hours
10/21/24
02:00
Temp 98.9 F
Vital Signs
Temp Pulse Resp BP Pulse Ox
98.1 F 74 18 125/68 92
10/21/24 07:30 10/21/24 04:39 10/21/24 07:30 10/21/24 04:39 10/21/24 07:30
I&O
10/20/24 10/21/24 10/22/24
06:59 06:59 06:59
Intake Total 204 / 204
Output Total 1700 / 1700 250 / 250
Balance -1496 / -1496 -250 / -250
Review of Systems
-
All other systems: Reviewed and negative
Physical Exam
-
General: Well Developed, Well Nourished and No Apparent Distress
HEENT: Normocephalic and Atraumatic; Negative Oxygen
Respiratory: Clear to Auscultation; Negative Wheezes or Rhonchi
Cardiac: Regular Rhythm and S1/S2; Negative Murmur
GI: Soft, Nontender, Nondistended and Normal Bowel Sounds
Musculoskeletal: No Clubbing, No Cyanosis and No Edema
Skin: Warm
Neuro: Awake and Alert
Psych: Calm
[2024-10-21] MEDS: LOPRESSOR 12.5 MG PO (09:58)
[2024-10-21 10:25] LABS: APTT 38.6 Sec (23.4-35.0)
--- NOTE | 2024-10-21 11:33 | CM ---
pricelisa briceno at [facility], her copay is $30/mo. it is in stock
[2024-10-21] MEDS: TOPROL XL 25 MG PO (11:41)
--- NOTE | 2024-10-21 11:49 | PTCARENOTE ---
Pt received this am with no c/o of any pain or discomfort. Iv heparin infusing as ordered. Pt assisted to the chair for breakfast.
[2024-10-21] MEDS: ZOSYN IV (16:17)
--- NOTE | 2024-10-21 16:54 | W.DCSUMMARY ---
Discharge Summary
Discharge Data
Date of Admission: 10/17/24
Date of Discharge: 10/21/24
-
Pending Results: No
Hospital Course
Primary care physician : Mary Benson
Principal Discharge diagnosis : Choledocholithiasis, non-ST segment elevation myocardial infarction, right atrial mass unclear significance thought myxoma, supraventricular tachycardia/new onset paroxysmal atrial fibrillation
Chronic Discharge diagnosis : Hypothyroidism, hypokalemia
Hospital Course : Patient was a 74-year-old female with a history of supraventricular tachycardia and hypothyroidism who presented with complaints of palpitations. Patient was vomiting on Monday to Monday prior to admission and then felt very weak
and fatigued. She had poor oral intake but denied diarrhea. She also had dark urine. She denied chest pain, headache, dizziness, syncope. She denied fevers, chills and dysuria. On the morning of admission, patient was sitting down when she had
an abrupt onset of palpitations. She called 911. She was found to be in supraventricular tachycardia with a heart rate in the 160s. She received 6 mg of adenosine and fluids with subsequent conversion back to normal sinus rhythm. Patient was
brought to the emergency department. Workup revealed her to have elevated liver function tests. Relatively prominent sized gallbladder without definitive stones and intra and extrahepatic biliary duct dilatation. Patient was admitted.
Problem #1: Choledocholithiasis. Patient was admitted and was seen in consultation by GI. MRCP was done which shows biliary ductal distention, doubt choledocholithiasis, and low-grade cholecystitis. Patient was started on Zosyn for antibiotic
coverage. ERCP was performed, results are below. Briefly, filling defect consistent with a stone was seen in the cholangiogram. Biliary sphincterotomy was performed. Plastic stent was placed in the common bile duct. Surgery was also consulted
and due to cardiac issues which have developed, cholecystectomy will be deferred to the elective outpatient setting.
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 This was found on echocardiogram and confirmed by CT scan of the chest. Cardiology was consulted. They did speak with CT surgery but no planned interventions were done this
admission. She should follow-up with cardiology for further investigative/diagnostic/therapeutic options for this issue.
Problem #3: Supraventricular tachycardia/new onset paroxysmal atrial fibrillation/non-ST segment elevation myocardial infarction. Patient was found to be in SVT with tachycardia which responded to adenosine. Cardiology was consulted. She actually
converted to rapid atrial fibrillation. IV Lopressor was given. Cardizem drip was started and the patient was eventually weaned off. During her rapid atrial fibrillation, patient developed septal and lateral ST segment depressions and abnormal
cardiac troponins. Patient does not have a history of known coronary artery disease. Echocardiogram was done as mentioned. Patient was started on IV heparin and converted to Eliquis at discharge. Toprol-XL was also continued. Cardiology
follow-up can determine whether pharmacologic stress testing or cardiac catheterization should be performed prior to any cholecystectomy or resection of the intracardiac mass.
Problem #5: All other medical issues. These include Hypothyroidism, hypokalemia. These medical issues were stable during her hospitalization. Medications were continued as able.
Patient is stable for discharge home at this time. If there are any questions regarding this dictation or her hospital stay, please do not hesitate to call. Our office number is [phone].
Time for discharge 38 minutes.
Important imaging findings :
CT SCAN ABDOMINAL/PELVIS IMPRESSION:
Relative prominent size gallbladder without definitive stones within. Intrahepatic and extrahepatic biliary tract dilatation. Cannot exclude small calculus within the distal common bile duct. Recommend correlation with LFTs. Consider abdominal
ultrasound or MRI/MRCP for more complete evaluation.
No findings to suggest urinary tract calculus or obstructive uropathy bilaterally.
Small hiatal hernia with air-fluid level.
ABDOMINAL MRI IMPRESSION:
Biliary ductal distention. Choledocholithiasis. Gallbladder distention with small calculus in the gallbladder neck. Mild gallbladder wall thickening and trace pericholecystic fluid, suggesting low-grade cholecystitis.
CT SCAN CHEST: There is heterogeneous attenuation within the right atrium, significantly limited in evaluation due to motion artifact and contrast mixing in this region. There is an ill-defined region of hypoattenuation and underlying mass is not
excluded, although discrete measurements cannot be made.
ECHOCARDIOGRAM CONCLUSIONS:
1. Mild concentric left ventricular hypertrophy with preserved systolic
function, EF 55-60%
2. Mitral annular calcification with trace mitral regurgitation and normal
left atrium
3. Aortic sclerosis without stenosis or regurgitation
4. Normal right ventricle
5. 1.3 x 0.9 cm acoustically heterogeneous mass in right atrium
abutting/adherent to the wall of right atrium and inferior tricuspid leaflet.
Procedure findings :
ERCP Impression: A filling defect consistent with a stone was seen on
the cholangiogram.
- The middle third of the main bile duct and lower
third of the main bile duct were mildly dilated.
- The middle third of the main bile duct and lower
third of the main bile duct were mildly dilated.
- Choledocholithiasis was found. Complete removal was
accomplished by biliary sphincterotomy and balloon
extraction.
- A biliary sphincterotomy was performed.
- The biliary tree was swept.
- One plastic stent was placed into the common bile
duct.
Discharge Plan
-
Patient Disposition: Home (Routine Discharge)
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
fibrillation
Condition: Good
Diet: Low Fat
Activity: As tolerated
Driving Restrictions: Not until seen by your Dr
Bathing Restrictions: None
Other Services: VN
Referrals:
Mary Benson NP [Family Provider] - in less than 1 week
Jonah Richards MD [Active] - in four to six weeks
Leeroy Alonso MD [Active] - in one to two months (To discuss removal of the gallbladder)
Cori Burleson DO [Active] - (cards to arrange for outpt cardiac follow up with [facility]--if you prefer to follow with Dr. Smallwood, will need determination for pharmacologic stress testing should be performed or if cardiac catheterization is indicated
prior to cholecystectomy and presumed resection of intracardiac mass. Will also determine best next imaging modality for her right atrial mass, MRI and/or transesophageal echo.)
Clemente Gallo MD [Active] - 11/12/24 8:30 am (discuss surgical removal of right atrial myxoma)
Prescriptions:
New
Eliquis 5 mg tablet
5 mg PO BID Qty: 60 11RF
Continued
cholecalciferol (vitamin D3) 1,000 UNITS tablet
2,000 units PO DAILY Qty: 28 0RF
Rx Instructions:
Take 2,000 units daily for 14 days
metoprolol succinate [Toprol XL] 50 mg Tablet Extended Release 24 Hr
50 mg PO DAILY
vitamin B complex Tablet
1 tab PO DAILY
ascorbic acid (vitamin C) [Vitamin C] 500 MG tablet
1,000 mg PO DAILY
Rx Instructions:
Take 1,000 mg twice a day for 14 days
levothyroxine [Synthroid] 125 mcg Tablet
125 mcg PO DAILY
Discharge Orders:
Discharge Patient (As Directed); Ordered 10/21/24
Ordered By: Veda Valdse
Care Plan Goals
Care Plan Goals:
Problem: Readiness for enhanced knowledge related to diagnosis and treatment plan
Goal: Understand your diagnosis and treatment plan needs, including medications if applicable.
Instructions: Know your diagnosis, underlying causes and treatment plan options, including medications if applicable. Consult with your health care team to learn about your diagnosis and treatment plan, including medications if applicable.
Discharge Date and Time
Discharge Date/Time: 10/21/24 17:22
Print Language: [place]
== END 2024-10-21 17:22 | disposition home or self-care (01) | DRG 444 ==
LOC: IVU 15:34
PROVIDERS: Internal Medicine; Internal Medicine Gastroenterology; Nurse Practitioner Gerontology; Physician Assistant; Registered Nurse; ADMITTING PHYSICIAN Hospitalist; ATTENDING PHYSICIAN Internal Medicine; CONSULT PHYSICIAN Specialist; CONSULT PHYSICIAN Surgery; EMERGENCY PHYSICIAN Emergency Medicine; FAMILY PHYSICIAN Nurse Practitioner Family; OTHER PHYSICIAN Internal Medicine Cardiovascular Disease
PROC: BF111ZZ Fluoroscopy of Biliary and Pancreatic Ducts using Low Osmolar Contrast (ICD-10-PCS; 2024-10-18)
PROC: 0FC98ZZ Extirpation of Matter from Common Bile Duct, Via Natural or Artificial Opening Endoscopic (ICD-10-PCS; 2024-10-18)
PROC: 0F798DZ Dilation of Common Bile Duct with Intraluminal Device, Via Natural or Artificial Opening Endoscopic (ICD-10-PCS; 2024-10-18)
DX: K80.50 Calculus of bile duct without cholangitis or cholecystitis without obstruction (principal); I21.4 Non-ST elevation (NSTEMI) myocardial infarction; I47.10 Supraventricular tachycardia, unspecified; E06.3 Autoimmune thyroiditis; E87.6 Hypokalemia; I48.0 Paroxysmal atrial fibrillation; K44.9 Diaphragmatic hernia without obstruction or gangrene; Z87.891 Personal history of nicotine dependence; Z86.16 Personal history of COVID-19; Z11.52 Encounter for screening for COVID-19; Z79.890 Hormone replacement therapy; Z79.899 Other long term (current) drug therapy; I34.81 Nonrheumatic mitral (valve) annulus calcification; I70.0 Atherosclerosis of aorta; D15.1 Benign neoplasm of heart
CPT/HCPCS: 71046; 71260; 74177; 74183; 74330; 76000; 80048; 80053; 80061; 80076; 81003; 81015; 82962; 83605; 83690; 83735; 84132; 84439; 84443; 84484; 85025; 85027; 85610; 85730; 87086; 87502; 87811; 93005; 93306; 96360; 99285; A9575; C1769; C2625; Q9967

== ENCOUNTER 2024-11-08 08:24 | Day surgery (SDC) | payer OTHER, SELFPAY ==
[2024-11-08 09:06] VITALS: BP 129/75
[2024-11-08 09:11] VITALS: BP 131/76
[2024-11-08 09:16] VITALS: BP 116/73
[2024-11-08 09:31] VITALS: BP 121/71
[2024-11-08] MEDS: LOW STRENGTH ASPIRIN 324 MG PO (11:19)
--- NOTE | 2024-11-08 13:06 | W.PN.UPDATE ---
Update Note
Progress Note Update
Attending addendum: Patient presented for left heart catheterization in anticipation of probable surgical resection of right atrial mass. I reviewed the echocardiogram from 10/18/[address] scan from 10/19/2024 and discussed the findings with
several of my noninvasive partners and CT surgery. The etiology of the echodense structure in the right atrium was unclear and there was certainly no consensus on surgical resection. At this point I felt that further delineation of the right
atrial echodense structure was warranted and canceled the left heart catheterization in favor of performing transesophageal echocardiogram with plan follow-up with CT surgery. The transesophageal echocardiogram was performed by Dr. Garcia earlier
today and there is no evidence of right atrial mass. I think these findings most likely suggest potential thrombus that has resolved with oral anticoagulation over the subsequent 3 weeks.
I discussed with Dr. Burleson. Patient will be scheduled to follow-up in the office with plans for repeat transthoracic echocardiogram and further imaging with CT chest using PE protocol or TAVR protocol in order to facilitate better filling of
the right atrium.
== END 2024-11-08 14:11 | disposition home or self-care (01) ==
LOC: CATH 08:24
PROVIDERS: ATTENDING PHYSICIAN Internal Medicine Interventional Cardiology; FAMILY PHYSICIAN Nurse Practitioner Family; OTHER PHYSICIAN Internal Medicine Cardiovascular Disease
DX: I34.0 Nonrheumatic mitral (valve) insufficiency (principal); I48.0 Paroxysmal atrial fibrillation; I47.10 Supraventricular tachycardia, unspecified; Z87.891 Personal history of nicotine dependence; Z79.01 Long term (current) use of anticoagulants
CPT/HCPCS: 93312; 93320; 93325

== ENCOUNTER → 2024-12-04 08:30 | Outpatient (REF) | payer OTHER, SELFPAY | LOC: RCS 08:30 | PROVIDERS: ATTENDING PHYSICIAN Internal Medicine Cardiovascular Disease; FAMILY PHYSICIAN Nurse Practitioner Family | DX: I82.401 Acute embolism and thrombosis of unspecified deep veins of right lower extremity (principal) | CPT/HCPCS: 93307; Q9957 ==

== ENCOUNTER 2025-01-07 06:37 | Day surgery (SDC) | payer OTHER, SELFPAY ==
[2025-01-07 10:42] VITALS: BMI 27.9
[2025-01-07 10:44] VITALS: BP 121/67
[2025-01-07 13:31] VITALS: BP 113/64
[2025-01-07 13:45] VITALS: BP 122/63
== END 2025-01-07 14:10 | disposition home or self-care (01) ==
LOC: GI 06:37
PROVIDERS: ATTENDING PHYSICIAN Internal Medicine Gastroenterology
DX: K31.7 Polyp of stomach and duodenum (principal); K21.00 Gastro-esophageal reflux disease with esophagitis, without bleeding; K44.9 Diaphragmatic hernia without obstruction or gangrene; Z46.59 Encounter for fitting and adjustment of other gastrointestinal appliance and device
CPT/HCPCS: 43251; 43247; 88305

== ENCOUNTER → 2025-03-04 08:33 | Outpatient (REF) | payer OTHER, SELFPAY | LOC: PET 08:33 | PROVIDERS: ATTENDING PHYSICIAN Internal Medicine Cardiovascular Disease | DX: R79.89 Other specified abnormal findings of blood chemistry (principal); Z01.818 Encounter for other preprocedural examination | CPT/HCPCS: 78431; A9555; J2785 ==

== ENCOUNTER 2025-03-28 06:04 | Day surgery (SDC) | payer OTHER, SELFPAY ==
[2025-03-24 11:44] LABS: Hematocrit 39.0 % (37.0-47.0); Hemoglobin 12.8 g/dL (12.0-16.0); Mean Corp Hgb Conc. 32.8 g/dL (33.0-37.0); Mean Corpuscular Volume 89.9 fL (81.0-99.0); Platelet Count 234 10^3/uL (130-400); Red Cell Dist. Width 12.9 % (11.5-14.5)
[2025-03-24 12:10] LABS: ALT (SGPT) 24 U/L (0-35); AST (SGOT) 23 U/L (14-36); Albumin 4.4 g/dl (3.5-5.0); Alkaline Phosphatase 70 U/L (38-126); Blood Urea Nitrogen 16 mg/dl (7-17); Calcium 9.1 mg/dl (8.4-10.2); Carbon Dioxide 27 mmol/L (22-30); Chloride 103 mmol/L (98-107); Glucose 86 mg/dl (70-99); Potassium 4.8 mmol/L (3.5-5.1); Sodium 137 mmol/L (135-145); Total Protein 7.2 g/dl (6.3-8.2); eGFR > 60.00
[2025-03-24 14:05] VITALS: BMI 30.9
[2025-03-28] VITALS (12 sets, daily range): BP systolic 120–151; BP diastolic 68–100; BMI 30.9; BMI 30.2
--- NOTE | 2025-03-28 12:29 | HP.FOC2 ---
Focused History & Physical
Chief Complaint
HPI:
Chief Complaint: Symptomatic cholelithiasis, history of choledocholithiasis
HPI / Indication for Planned Procedure: Patient is a 74-year-old female who was admitted in October and was found to have choledocholithiasis. She underwent ERCP sphincterotomy and stone extraction. In the setting of her atrial fibrillation with RVR
any questionable left atrial mass cholecystectomy was deferred. She has since undergone further evaluation and there is no evidence of any atrial mass or significant abnormality. She has had endoscopic removal of her previously placed biliary
stent which she tolerated well. She presents today for cholecystectomy.
Relevant Past Medical History: Other (Mitral valve prolapse, mild mitral regurgitation, history of SVT, Adama's thyroiditis, atrial fibrillation, mild dementia)
Relevant Social History: Negative
Relevant Family History: Negative
Relevant Past Surgical History: Positive for (ERCP with stone removal, tonsillectomy)
Review of Systems
Review of Pertinent Systems: All Systems Negative
Medication
See Medication form for detailed medications: Yes
Medication List (including Herbals & OTC):
levothyroxine 125 mcg tablet (Synthroid) 125 mcg PO DAILY Thyroid 10/17/24
metoprolol succinate 50 mg tablet,extended release 24 hr (Toprol XL) 50 mg PO DAILY Blood Pressure 10/17/24
apixaban 5 mg tablet (Eliquis) 5 mg PO BID Blood clot prevention/tx #60 tabs 10/21/24
donepezil 5 mg tablet 5 mg PO HS 03/21/25
metoprolol succinate 25 mg tablet,extended release 24 hr 25 mg PO HS 03/21/25
pantoprazole 40 mg tablet,delayed release (Protonix) 40 mg PO DAILY 03/21/25
Medications Reviewed: Yes
Allergies and Reactions
Patient has Allergies: No
Noted Allergies and Reactions:
Allergy/AdvReac Type Severity Reaction Status Date / Time
No Known Allergies Allergy Verified 03/28/25 12:18
Pertinent Physical Exam
All Other Systems: Negative
Head/Neck: Normal
Lungs: Normal
Heart: Normal
Abdomen: Normal
Extremities: Normal
Neurological: Normal
Diagnosis / Assessment
Patient is a 74-year-old female presenting for cholecystectomy for management of symptomatic cholelithiasis and previous history of choledocholithiasis
Plan / Procedure
Laparoscopic cholecystectomy with cholangiogram
Anesthesia/Sedation to be done by Anesthesia Provider: Yes
[2025-03-28] MEDS: TYLENOL 1000 MG PO (12:31)
[2025-03-28] MEDS: NORMOSOL-R/PLASMALYTE-A 1000 IV (12:56)
--- NOTE | 2025-03-28 14:44 | W.IMMPOSTOP ---
Surgical Immed Post Op Note
-
Primary Surgeon: Leeroy Alonso MD
Assisting Surgeon: None
Pre-op Diagnosis: Symptomatic cholelithiasis, history of choledocholithiasis
Post-op Diagnosis: Symptomatic cholelithiasis, history of choledocholithiasis
Procedure Performed: Laparoscopic cholecystectomy with cholangiogram
Anesthesia Type: GETA +0.25% Marcaine
Specimen / Cultures: None
Estimated Blood Loss: 8 mL
Complications: None immediate
Operative Findings: Gallbladder with numerous stones. Somewhat contracted. Dilated cystic duct. Intraoperative cholangiogram normal. Cystic duct divided with Endo EMANI 30 mm walters stapler. No disruption of gallbladder with cholecystectomy.
--- NOTE | 2025-03-28 15:12 | OR.RPT ---
Operative Report
Operative Report
Date of operative procedure: 03/28/2025
Primary Surgeon: Leeroy Alonso MD
Art Teacher: None
Pre-op Diagnosis: Symptomatic cholelithiasis, history of choledocholithiasis
Post-op Diagnosis: Symptomatic cholelithiasis, history of choledocholithiasis
Procedure Performed: Laparoscopic cholecystectomy with intraoperative cholangiogram
Anesthesia: GETA +0.25% Marcaine
Specimen / Cultures: Gallbladder/none
Estimated Blood Loss: 8 mL
Complications: None immediate
Indications for Operative Procedure: Patient is a 74-year-old female who was admitted in October and was found to have choledocholithiasis. She underwent ERCP sphincterotomy and stone extraction. In the setting of her atrial fibrillation with RVR
any questionable left atrial mass cholecystectomy was deferred. She has since undergone further evaluation and there is no evidence of any atrial mass or significant abnormality. She has had endoscopic removal of her previously placed biliary
stent which she tolerated well. She presents today for cholecystectomy.
Brief Summary of Operative Findings: Gallbladder with numerous stones. Somewhat contracted. Dilated cystic duct. Intraoperative cholangiogram normal. Cystic duct divided with Endo EMANI 30 mm walters stapler. No disruption of gallbladder with
cholecystectomy.
Operation in Detail: The patient was identified in the preoperative holding area. I confirmed the anticipated surgical procedure with the patient and her sister at bedside preoperatively. She was interviewed by the anesthesia and nursing staff
then brought back to the operating room. The patient was placed on the operating table in supine position. The bilateral upper extremities were carefully placed on padded arm boards and secured. Pneumatic compression boots were on the bilateral
lower extremities. Following induction of general endotracheal anesthesia the patient was administered cefotetan 2 g IV for prophylactic antibiotic coverage. The patient's anterior abdominal wall was now widely and sterilely prepped with
ChloraPrep and then draped in the usual manner. The surgical time out was completed and the procedure was confirmed.
I initially proceeded with Veress needle insufflation at the left subcostal midclavicular line location. Once insufflated to 12 mmHg pressure then a right periumbilical 5 mm trocar was placed with optical viewing entry. The laparoscope was
inserted. There was no evidence of iatrogenic injury from access and the Veress needle was withdrawn. An epigastric 12 mm trocar was placed followed by right sided lateral 5 mm trocar x 2 all under direct visualization. The patient was now
transition into reverse Trendelenburg and right side up to aid in exposure of the right upper quadrant.
The gallbladder was identified in its usual anatomic location. The fundic region was grasped and retracted anteriorly. There were no significant adhesions. The gallbladder was now further retracted anteriorly and cranially to expose it all the
way down to the infundibulum. The infundibular area was now grasped and manipulated to expose the peritoneal attachments around the region of the triangle of Calot. The peritoneum was carefully and superficially opened with hook on the cautery
device both postero-laterally and madison-medially. The gallbladder was readily elevated off the cystic plate of the liver bed identifying the main cystic artery anteriorly followed by an expectedly modestly dilated cystic duct. The lateral
posterior dissection continued and a posterior cystic artery branch was identified as well. The connective tissue/fatty tissue attachments in the triangle were completely freed until the cystic artery and its branches and the cystic duct were fully
exposed with both an anterior and wide posterior critical view of safety. I first applied 2 clips proximally on the cystic artery and 1 clip distally and divided it. Next a clip was placed at the cystic infundibular junction. A ductotomy was
created just proximal to the clip on the cystic duct. A 5 Salv[place]orean cholangiocatheter was then inserted and secured with the Ribera clamp.
Utilizing full-strength Optiray contrast cholangiography was performed. There was prompt opacification of the cystic duct and common bile duct. Common bile duct emptied into the duodenum with smooth distal tapering of the ampulla. The patient was
then placed into Trendelenburg and next images confirmed visualization of the common hepatic and intrahepatic biliary tree. There were no filling defects, strictures or other abnormalities noted and the biliary anatomy was confirmed. Cholangiogram
was therefore interpreted as being normal.
The cholangiocatheter was removed. The cystic duct was significantly distended consistent with her history of choledocholithiasis. I utilized a endoscopic EMANI 30 mm walters stapler to divide it as there was a long length of the cystic duct leading to
the common bile duct. There was no evidence of any bile leakage from the cystic duct stump. The gallbladder was now retracted off of its posterior liver bed attachments. The gallbladder was now dissected free from its remaining liver bed
attachments with monopolar cautery intact and placed within a specimen retrieval bag.
The surgical field inspected. Meticulous hemostasis was assured. There was no evidence of any bile staining or leakage. There is no evidence of bleeding. The right upper quadrant was locally irrigated with sterile saline with clear return. The
patient was now returned to neutral position. The gallbladder was extracted at the epigastric port site with slight dilation of the fascia. The 12 mm trocar site was now closed with a [id number] PDS stitch placed utilizing an Endo Close
device. The remaining air was evacuated out of the abdominal cavity. The 5 mm trocar sites were now removed. Skin was closed at all of the surgical sites with buried interrupted 4-0 Monocryl. Sterile surgical glue dressings were applied. The
patient tolerated the procedure well and was transferred to the recovery unit for routine postoperative monitoring.
== END 2025-03-28 17:12 | disposition home or self-care (01) ==
LOC: SDS 06:04
PROVIDERS: ATTENDING PHYSICIAN Surgery; FAMILY PHYSICIAN Nurse Practitioner Family
DX: K81.2 Acute cholecystitis with chronic cholecystitis (principal); K82.4 Cholesterolosis of gallbladder
CPT/HCPCS: 47563; 36415; 74300; 76000; 80053; 85027; 88304; A4300

== ENCOUNTER 2025-07-08 06:44 | Outpatient (RCR) | payer MEDICARE, OTHER, SELFPAY | END 2025-07-08 23:59 | disposition home or self-care (01) | LOC: RPT 06:44 | PROVIDERS: ATTENDING PHYSICIAN Nurse Practitioner Family | DX: S32.000D Wedge compression fracture of unspecified lumbar vertebra, subsequent encounter for fracture with routine healing (principal); Z73.6 Limitation of activities due to disability; M54.50 Low back pain, unspecified | CPT/HCPCS: 97110; 97162 ==

== ENCOUNTER 2025-07-17 06:22 | Outpatient (RCR) | payer MEDICARE, OTHER, SELFPAY | END 2025-07-30 23:59 | disposition home or self-care (01) | LOC: RST 06:22 | PROVIDERS: ATTENDING PHYSICIAN Nurse Practitioner Family | DX: R41.89 Other symptoms and signs involving cognitive functions and awareness (principal); S32.000D Wedge compression fracture of unspecified lumbar vertebra, subsequent encounter for fracture with routine healing; Z73.6 Limitation of activities due to disability; M54.50 Low back pain, unspecified | CPT/HCPCS: 96125 ==